=== PATIENT | male | born 1980 | race Caucasian/White ===

== ENCOUNTER → 2017-09-27 09:32 | Outpatient (CLI) | payer OTHER, SELFPAY ==
[2017-09-27 11:14] LABS: Add Manual Diff / Slide Review NO; Basophils Percent Auto 0.3 % (0-2); Eosinophils Percent Auto 3.1 % (2-4); Hematocrit 41.1 % (41-53); Hemoglobin 14.4 g/dL (13.5-17.5); Lymphocytes Percent Auto 32.7 % (25-40); Mean Corpuscular Hemoglobin 31.1 PG (26-34); Mean Corpuscular Volume 88.8 fL (80-100); Monocytes Percent Auto 6.1 % (3-14); Neutrophils Absolute Auto 2900 /uL (3000-5900); Neutrophils Percent Auto 57.8 % (50-75); Platelet Count 112 X10^3/uL (150-400); Red Blood Cell Count 4.63 X10^6/uL (4.5-5.9); Red Cell Distribution Width 12.3 % (11.6-14.8)
[2017-09-27 11:37] LABS: Alanine Aminotransferase 28 IU/L (21-72); Albumin Globulin Ratio 1.4 (1.0-2.8); Alkaline Phosphatase 78 U/L (38-126); Aspartate Aminotransferase 28 IU/L (17-59); BUN Creatinine Ratio 17.8 (6-22); Bilirubin Total 0.6 mg/dL (0.2-1.3); Blood Urea Nitrogen 16 mg/dL (9-20); Calcium 9.1 mg/dL (8.4-10.2); Carbon Dioxide 28 mmol/L (22-32); Chloride 102 mmol/L (98-107); Estimated Glomerular Filt Rate > 60.0 mL/min (>60); Globulin 2.8 g/dL (1.7-4.1); Glucose 77 mg/dL (70-100); HEMOLYSIS < 15 (0-50); Sodium 141 mmol/L (137-145); Total Protein 6.8 g/dL (6.3-8.2)
[2017-09-27 20:15] LABS: Hepatitis B Surface Antigen NEGATIVE s/c (NEGATIVE)
[2017-09-27 20:35] LABS: Hep C Virus Ab w/Reflex Quant NEGATIVE s/c (NEGATIVE)
[2017-09-29 15:21] LABS: Hepatitis B Surf Ab Qualitativ Nonreactive (Nonreactive)
[2017-10-03 16:01] LABS: Rapid Plasma Reagin NON REACTIVE
== END ==
PROVIDERS: Visit Provider Nurse Practitioner Family
DX: Z11.3 Encounter for screening for infections with a predominantly sexual mode of transmission (principal); Z11.59 Encounter for screening for other viral diseases; Z13.228 Encounter for screening for other metabolic disorders
CPT/HCPCS: 36415; 80053; 85025; 86592; 86706; 86803; 87340

== ENCOUNTER 2017-12-21 16:08 | Emergency (ER) | payer OTHER, MEDICAID, SELFPAY ==
[2017-12-21 16:08] VITALS: BP 145/86; PULSE 63; RESP 19; TEMP 36.6; O2SAT 97; BMI 27.8
--- NOTE | 2017-12-21 16:49 | ED.CHESTPAIN ---
HPI - Chest Pain <Camelia High PA-C - Last Filed: 12/21/17 22:03> General Chief Complaint: Chest Pain Stated Complaint: chest pain,sob,feels like he is going to faint Time Seen by Provider: 12/21/17 16:49 Source: patient Mode of arrival: ambulatory Limitations: no limitations History of Present Illness HPI narrative: This 37 year old male complains of acute onset of air hunger followed by dull mid sternal pain which gradually worsened to the point that he felt like he could not breathe. He states he became sweaty, clammy, and dizzy and felt like he would lose control of his bowels. He states that he did not actually pass out. He states that this lasted about 15 min, then started to resolve. He states he is feeling much better than when he left to come here. He still feels like his chest is somewhat tight, but does not feel clammy or dizzy. He states he had some nausea when this was worse but does not now. 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 He denies any asthma, recent cough or history of lung disease. Has not had any fever. He has not had any swelling or pain that is new in his extremities. He states that he did have a pulmonary embolism in the past the setting of liver laceration and hospitalization, otherwise no history of blood clots in he or 1st degree relatives. He states that for the last couple of weeks he has had episodes of brief palpitations that might last a minute, but are not particularly bothersome. He states this does not feel like panic attack or anxiety but possible. 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 He denies any drug use today. Related Data Home Medications Medication Instructions Recorded Confirmed buprenorphine-naloxone [Suboxone] #0 02/19/17 Previous Rx's Medication Instructions Recorded metoclopramide HCl 10 mg PO TIDAC #14 tab 02/19/17 Allergies Allergy/AdvReac Type Severity Reaction Status Date / Time Penicillins [PENICILLINS] Allergy Unknown Unverified 08/03/17 12:10 Exam <Camelia High PA-C - Last Filed: 12/21/17 22:03> Narrative Exam Narrative: GENERAL APPEARANCE: Patient sitting comfortably, in no distress. HEENT: PERRL, EOMI NECK/THYROID: Neck supple, no JVD. LUNGS: Clear to auscultation bilaterally. CHEST: No Tenderness to palpation HEART: Regular rate and rhythm without murmur, normal S1, S2, no S3 or S4. ABDOMEN: Soft, NT, ND, + BS x 4 quadrants EXTREMITIES: No cyanosis or edema. No calf tenderness NEUROLOGIC: Alert and oriented, normal speech, gait and coordination. DERMATOLOGIC: No exanthem Initial Vital Signs Initial Vital Signs: Vital Signs Temperature 97.8 F 12/21/17 16:08 Pulse Rate 63 12/21/17 16:08 Respiratory Rate 19 12/21/17 16:08 Blood Pressure 145/86 H 12/21/17 16:08 Pulse Oximetry 97 12/21/17 16:08 <Angeles Peters DO - Last Filed: 12/22/17 13:43> Initial Vital Signs Initial Vital Signs: Vital Signs Temperature 97.8 F 12/21/17 16:08 Pulse Rate 63 12/21/17 16:08 Respiratory Rate 19 12/21/17 16:08 Blood Pressure 145/86 H 12/21/17 16:08 Pulse Oximetry 97 12/21/17 16:08 Course <Camelia High PA-C - Last Filed: 12/21/17 22:03> Additional Information: Patient felt better during his stay in the ED. He felt this was more due to time that medications. Reviewed lab work, chest x-ray and EKG findings with him. No evidence of acute cardiopulmonary findings on workup or exam. He agreed to return if any acutely worsening symptoms again, otherwise advised follow-up with a primary care provider and he is agreeable Orders Ordered: Discontinued Medications Albuterol (Ventolin) 2.5 mg INH NOW ONE Stop: 12/21/17 17:05 Last Admin: 12/21/17 18:03 Dose: 2.5 mg Al Hydrox/Mg Hydrox/Simethicone 20 ml/ Lidocaine HCl 15 ml 0 ml PO NOW ONE Stop: 12/21/17 17:05 Last Admin: 12/21/17 17:50 Dose: 30 ml Sodium Chloride (Normal Saline 0.9%) 1,000 mls @ 150 mls/hr IV CONT CB Last Infusion: 12/21/17 18:49 Dose: 0 mls/hr Admin: 12/21/17 17:50 Dose: 150 mls/hr Vital Signs - 8 hr 12/21/17 16:08 12/21/17 17:00 12/21/17 17:39 Temperature 97.8 F Pulse Rate 63 53 L 50 L Respiratory Rate 19 Blood Pressure 145/86 H Blood Pressure [Left Arm] 135/75 H 122/71 H Pulse Oximetry 97 98 97 12/21/17 18:00 12/21/17 18:03 12/21/17 18:49 Temperature Pulse Rate 98 H 67 Respiratory Rate 12 12 Blood Pressure 124/58 H Blood Pressure [Left Arm] 112/54 L Pulse Oximetry 97 94 <Angeles Peters DO - Last Filed: 12/22/17 13:43> Orders Ordered: Discontinued Medications Albuterol (Ventolin) 2.5 mg INH NOW ONE Stop: 12/21/17 17:05 Last Admin: 12/21/17 18:03 Dose: 2.5 mg Al Hydrox/Mg Hydrox/Simethicone 20 ml/ Lidocaine HCl 15 ml 0 ml PO NOW ONE Stop: 12/21/17 17:05 Last Admin: 12/21/17 17:50 Dose: 30 ml Sodium Chloride (Normal Saline 0.9%) 1,000 mls @ 150 mls/hr IV CONT CB Last Infusion: 12/21/17 18:49 Dose: 0 mls/hr Admin: 12/21/17 17:50 Dose: 150 mls/hr Vital Signs - 8 hr 12/21/17 16:08 12/21/17 17:00 12/21/17 17:39 Temperature 97.8 F Pulse Rate 63 53 L 50 L Respiratory Rate 19 Blood Pressure 145/86 H Blood Pressure [Left Arm] 135/75 H 122/71 H Pulse Oximetry 97 98 97 12/21/17 18:00 12/21/17 18:03 12/21/17 18:49 Temperature Pulse Rate 98 H 67 Respiratory Rate 12 12 Blood Pressure 124/58 H Blood Pressure [Left Arm] 112/54 L Pulse Oximetry 97 94 MDM - Chest Pain <Camelia High PA-C - Last Filed: 12/21/17 22:03> Lab Data Attestation: I reviewed the patient's lab results. Result diagrams: 12/21/17 16:40 12/21/17 16:40 Lab Results 12/21/17 12/21/17 Range/Units 16:40 16:40 WBC 4.3 L (4.5-11.0) X10^3/uL RBC 4.65 (4.5-5.9) X10^6/uL Hgb 14.3 (13.5-17.5) g/dL Hct 41.0 (41-53) % MCV 88.3 (80-100) fL MCH 30.8 (26-34) PG MCHC 34.9 (30-36) % RDW 12.5 (11.6-14.8) % Plt Count 100 L (150-400) X10^3/uL Neut % (Auto) 55.9 (50-75) % Lymph % (Auto) 36.0 (25-40) % Wilcox % (Auto) 5.4 (3-14) % Eos % (Auto) 2.5 (2-4) % Baso % (Auto) 0.2 (0-2) % Neut # (Auto) 2400 L (6082-9673) /uL Sodium 144 (137-145) mmol/L Potassium 3.9 (3.4-5.1) mmol/L Chloride 107 (98-107) mmol/L Carbon Dioxide 28 (22-32) mmol/L BUN 21 H (9-20) mg/dL Creatinine 1.40 H (0.66-1.25) mg/dL Estimated GFR 57.3 L (>60) mL/min BUN/Creatinine Ratio 15.0 (6-22) Glucose 103 H (70-100) mg/dL Calcium 9.2 (8.4-10.2) mg/dL Total Bilirubin 0.7 (0.2-1.3) mg/dL AST 33 (17-59) IU/L ALT 29 (21-72) IU/L Alkaline Phosphatase 68 (38-126) U/L Total Creatine Kinase 299 H (55-170) U/L CK-MB (CK-2) 5.94 H (<2.37) ng/mL CK-MB (CK-2) Rel Index 2.0 (1.5-5.0) % Troponin I < 0.012 (0.01-0.034) ng/mL Total Protein 6.5 (6.3-8.2) g/dL Albumin 4.2 (3.5-5.0) g/dL Globulin 2.3 (1.7-4.1) g/dL Albumin/Globulin Ratio 1.8 (1.0-2.8) Lipase 92 (23-300) U/L Imaging Data Chest x-ray: Radiologist's impression: BACK Chest X-Ray (Signed) Shahab Ling - 12/21/17 View Report History Print [address] [address] XRay Report Signed Patient: Luis Carlos Sol MR#: [id number] : 1980 Acct:[id number] Age/Sex: 37 / M Date of Service: 12/21/17 Loc: ED Accession Number: [id number] Procedure: XR chest 1V Ordering Provider: Camelia High P.A-C PROCEDURE: XR CHEST 1V INDICATIONS: pain TECHNIQUE: One view of the chest was acquired. COMPARISON: [facility], CHEST 1 VIEW, 01/27/2014, 21:22. FINDINGS: Surgical changes and devices: None. Lungs and pleura: No pleural effusions or pneumothorax. Lungs are clear. Mediastinum: Mediastinal contours appear normal. Heart size is normal. Bones and chest wall: No suspicious bony lesions. Overlying soft tissues appear unremarkable. IMPRESSION: 1. No acute cardiopulmonary disease. Dictated by: Shahab Ling M.D. on 12/21/2017 at 17:35 Approved by: Shahab Ling M.D. on 12/21/2017 at 17:35 ECG Data Attestation: I personally reviewed and interpreted this ECG as follows: (Normal sinus rhythm with rate 70, normal axis) Prior ECG tracings: available for review <Angeles Peters DO - Last Filed: 12/22/17 13:43> Lab Data Attestation: I reviewed the patient's lab results. Lab Results 12/21/17 12/21/17 Range/Units 16:40 16:40 WBC 4.3 L (4.5-11.0) X10^3/uL RBC 4.65 (4.5-5.9) X10^6/uL Hgb 14.3 (13.5-17.5) g/dL Hct 41.0 (41-53) % MCV 88.3 (80-100) fL MCH 30.8 (26-34) PG MCHC 34.9 (30-36) % RDW 12.5 (11.6-14.8) % Plt Count 100 L (150-400) X10^3/uL Neut % (Auto) 55.9 (50-75) % Lymph % (Auto) 36.0 (25-40) % Wilcox % (Auto) 5.4 (3-14) % Eos % (Auto) 2.5 (2-4) % Baso % (Auto) 0.2 (0-2) % Neut # (Auto) 2400 L (6893-6826) /uL Sodium 144 (137-145) mmol/L Potassium 3.9 (3.4-5.1) mmol/L Chloride 107 (98-107) mmol/L Carbon Dioxide 28 (22-32) mmol/L BUN 21 H (9-20) mg/dL Creatinine 1.40 H (0.66-1.25) mg/dL Estimated GFR 57.3 L (>60) mL/min BUN/Creatinine Ratio 15.0 (6-22) Glucose 103 H (70-100) mg/dL Calcium 9.2 (8.4-10.2) mg/dL Total Bilirubin 0.7 (0.2-1.3) mg/dL AST 33 (17-59) IU/L ALT 29 (21-72) IU/L Alkaline Phosphatase 68 (38-126) U/L Total Creatine Kinase 299 H (55-170) U/L CK-MB (CK-2) 5.94 H (<2.37) ng/mL CK-MB (CK-2) Rel Index 2.0 (1.5-5.0) % Troponin I < 0.012 (0.01-0.034) ng/mL Total Protein 6.5 (6.3-8.2) g/dL Albumin 4.2 (3.5-5.0) g/dL Globulin 2.3 (1.7-4.1) g/dL Albumin/Globulin Ratio 1.8 (1.0-2.8) Lipase 92 (23-300) U/L ECG Data Attestation: I personally reviewed and interpreted this ECG as follows: Prior ECG tracings: available for review Interpretation: Normal sinus rhythm rate [address] changes [place] interval 1 4, QRS 24 QTC 404 similar to previous EKG Discharge Plan Departure Patient Disposition: Home Clinical Impression: Atypical chest pain Discharge Date/Time: 12/21/17 18:50 Interventions: ED Discharge Assessment Last Done: 12/21/17 18:49 Instructions: DI for Atypical Chest Pain Activity Restrictions/Additional Instructions: Please return as we talked about if you have acutely worsening symptoms again. Otherwise, since you are feeling better, it is okay to monitor at home, however you should call your insurance 1st thing tomorrow and get set up with a primary care provider so that you can follow up. The source of your pain was not clear today. You did not have any acute problems found on your lab work, EKG or chest x-ray. It is possible that you had a panic attack that was different than before. This could also potentially be due to airway irritation or spasm in your food pipe. I have not prescribed any medicines since you seem to get better with time rather than the medicines we gave you here. Prescriptions: No Action buprenorphine-naloxone [Suboxone] 4 MG/1 MG film Qty: 0 RF: 0 metoclopramide HCl 10 MG tablet 10 mg PO TIDAC Qty: 14 RF: 0 <Angeles Peters DO - Last Filed: 12/22/17 13:43> Cosign ED Attending Roberto Carlos Attestation: I was immediately available in the department for consultation. Documentation has been reviewed. I agree with assessment and plan.
[2017-12-21 17:00] VITALS: BP 135/75; PULSE 53; O2SAT 98
--- NOTE | 2017-12-21 17:03 | DI.RAD.S_ITS ---
PROCEDURE: XR CHEST 1V INDICATIONS: pain TECHNIQUE: One view of the chest was acquired. COMPARISON: [facility], , CHEST 1 VIEW, 01/27/2014, 21:22. FINDINGS: Surgical changes and devices: None. Lungs and pleura: No pleural effusions or pneumothorax. Lungs are clear. Mediastinum: Mediastinal contours appear normal. Heart size is normal. Bones and chest wall: No suspicious bony lesions. Overlying soft tissues appear unremarkable. IMPRESSION: 1. No acute cardiopulmonary disease. Dictated by: Shahab Ling M.D. on 12/21/2017 at 17:35 Approved by: Shahab Ling M.D. on 12/21/2017 at 17:35
--- NOTE | 2017-12-21 17:10 | ED_ITS ---
HPI - Chest Pain <Camelia High PA-C - Last Filed: 12/21/17 22:03> General Chief Complaint: Chest Pain Stated Complaint: chest pain,sob,feels like he is going to faint Time Seen by Provider: 12/21/17 16:49 Source: patient Mode of arrival: ambulatory Limitations: no limitations History of Present Illness HPI narrative: This 37 year old male complains of acute onset of air hunger followed by dull mid sternal pain which gradually worsened to the point that he felt like he could not breathe. He states he became sweaty, clammy, and dizzy and felt like he would lose control of his bowels. He states that he did not actually pass out. He states that this lasted about 15 min, then started to resolve. He states he is feeling much better than when he left to come here. He still feels like his chest is somewhat tight, but does not feel clammy or dizzy. He states he had some nausea when this was worse but does not now. 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 He denies any asthma, recent cough or history of lung disease. Has not had any fever. He has not had any swelling or pain that is new in his extremities. He states that he did have a pulmonary embolism in the past the setting of liver laceration and hospitalization, otherwise no history of blood clots in he or 1st degree relatives. He states that for the last couple of weeks he has had episodes of brief palpitations that might last a minute, but are not particularly bothersome. He states this does not feel like panic attack or anxiety but possible. 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 He denies any drug use today. Related Data Home Medications Medication Instructions Recorded Confirmed buprenorphine-naloxone [Suboxone] #0 02/19/17 Previous Rx's Medication Instructions Recorded metoclopramide HCl 10 mg PO TIDAC #14 tab 02/19/17 Allergies Allergy/AdvReac Type Severity Reaction Status Date / Time Penicillins [PENICILLINS] Allergy Unknown Unverified 08/03/17 12:10 Exam <Camelia High PA-C - Last Filed: 12/21/17 22:03> Narrative Exam Narrative: GENERAL APPEARANCE: Patient sitting comfortably, in no distress. HEENT: PERRL, EOMI NECK/THYROID: Neck supple, no JVD. LUNGS: Clear to auscultation bilaterally. CHEST: No Tenderness to palpation HEART: Regular rate and rhythm without murmur, normal S1, S2, no S3 or S4. ABDOMEN: Soft, NT, ND, + BS x 4 quadrants EXTREMITIES: No cyanosis or edema. No calf tenderness NEUROLOGIC: Alert and oriented, normal speech, gait and coordination. DERMATOLOGIC: No exanthem Initial Vital Signs Initial Vital Signs: Vital Signs Temperature 97.8 F 12/21/17 16:08 Pulse Rate 63 12/21/17 16:08 Respiratory Rate 19 12/21/17 16:08 Blood Pressure 145/86 H 12/21/17 16:08 Pulse Oximetry 97 12/21/17 16:08 <Angeles Peters DO - Last Filed: 12/22/17 13:43> Initial Vital Signs Initial Vital Signs: Vital Signs Temperature 97.8 F 12/21/17 16:08 Pulse Rate 63 12/21/17 16:08 Respiratory Rate 19 12/21/17 16:08 Blood Pressure 145/86 H 12/21/17 16:08 Pulse Oximetry 97 12/21/17 16:08 Course <Camelia High PA-C - Last Filed: 12/21/17 22:03> Additional Information: Patient felt better during his stay in the ED. He felt this was more due to time that medications. Reviewed lab work, chest x-ray and EKG findings with him. No evidence of acute cardiopulmonary findings on workup or exam. He agreed to return if any acutely worsening symptoms again, otherwise advised follow-up with a primary care provider and he is agreeable Orders Ordered: Discontinued Medications Albuterol (Ventolin) 2.5 mg INH NOW ONE Stop: 12/21/17 17:05 Last Admin: 12/21/17 18:03 Dose: 2.5 mg Al Hydrox/Mg Hydrox/Simethicone 20 ml/ Lidocaine HCl 15 ml 0 ml PO NOW ONE Stop: 12/21/17 17:05 Last Admin: 12/21/17 17:50 Dose: 30 ml Sodium Chloride (Normal Saline 0.9%) 1,000 mls @ 150 mls/hr IV CONT CB Last Infusion: 12/21/17 18:49 Dose: 0 mls/hr Admin: 12/21/17 17:50 Dose: 150 mls/hr Vital Signs - 8 hr 12/21/17 16:08 12/21/17 17:00 12/21/17 17:39 Temperature 97.8 F Pulse Rate 63 53 L 50 L Respiratory Rate 19 Blood Pressure 145/86 H Blood Pressure [Left Arm] 135/75 H 122/71 H Pulse Oximetry 97 98 97 12/21/17 18:00 12/21/17 18:03 12/21/17 18:49 Temperature Pulse Rate 98 H 67 Respiratory Rate 12 12 Blood Pressure 124/58 H Blood Pressure [Left Arm] 112/54 L Pulse Oximetry 97 94 <Angeles Peters DO - Last Filed: 12/22/17 13:43> Orders Ordered: Discontinued Medications Albuterol (Ventolin) 2.5 mg INH NOW ONE Stop: 12/21/17 17:05 Last Admin: 12/21/17 18:03 Dose: 2.5 mg Al Hydrox/Mg Hydrox/Simethicone 20 ml/ Lidocaine HCl 15 ml 0 ml PO NOW ONE Stop: 12/21/17 17:05 Last Admin: 12/21/17 17:50 Dose: 30 ml Sodium Chloride (Normal Saline 0.9%) 1,000 mls @ 150 mls/hr IV CONT CB Last Infusion: 12/21/17 18:49 Dose: 0 mls/hr Admin: 12/21/17 17:50 Dose: 150 mls/hr Vital Signs - 8 hr 12/21/17 16:08 12/21/17 17:00 12/21/17 17:39 Temperature 97.8 F Pulse Rate 63 53 L 50 L Respiratory Rate 19 Blood Pressure 145/86 H Blood Pressure [Left Arm] 135/75 H 122/71 H Pulse Oximetry 97 98 97 12/21/17 18:00 12/21/17 18:03 12/21/17 18:49 Temperature Pulse Rate 98 H 67 Respiratory Rate 12 12 Blood Pressure 124/58 H Blood Pressure [Left Arm] 112/54 L Pulse Oximetry 97 94 MDM - Chest Pain <Camelia High PA-C - Last Filed: 12/21/17 22:03> Lab Data Attestation: I reviewed the patient's lab results. Result diagrams: 12/21/17 16:40 12/21/17 16:40 Lab Results 12/21/17 12/21/17 Range/Units 16:40 16:40 WBC 4.3 L (4.5-11.0) X10^3/uL RBC 4.65 (4.5-5.9) X10^6/uL Hgb 14.3 (13.5-17.5) g/dL Hct 41.0 (41-53) % MCV 88.3 (80-100) fL MCH 30.8 (26-34) PG MCHC 34.9 (30-36) % RDW 12.5 (11.6-14.8) % Plt Count 100 L (150-400) X10^3/uL Neut % (Auto) 55.9 (50-75) % Lymph % (Auto) 36.0 (25-40) % Ramsey % (Auto) 5.4 (3-14) % Eos % (Auto) 2.5 (2-4) % Baso % (Auto) 0.2 (0-2) % Neut # (Auto) 2400 L (8042-2600) /uL Sodium 144 (137-145) mmol/L Potassium 3.9 (3.4-5.1) mmol/L Chloride 107 (98-107) mmol/L Carbon Dioxide 28 (22-32) mmol/L BUN 21 H (9-20) mg/dL Creatinine 1.40 H (0.66-1.25) mg/dL Estimated GFR 57.3 L (>60) mL/min BUN/Creatinine Ratio 15.0 (6-22) Glucose 103 H (70-100) mg/dL Calcium 9.2 (8.4-10.2) mg/dL Total Bilirubin 0.7 (0.2-1.3) mg/dL AST 33 (17-59) IU/L ALT 29 (21-72) IU/L Alkaline Phosphatase 68 (38-126) U/L Total Creatine Kinase 299 H (55-170) U/L CK-MB (CK-2) 5.94 H (<2.37) ng/mL CK-MB (CK-2) Rel Index 2.0 (1.5-5.0) % Troponin I < 0.012 (0.01-0.034) ng/mL Total Protein 6.5 (6.3-8.2) g/dL Albumin 4.2 (3.5-5.0) g/dL Globulin 2.3 (1.7-4.1) g/dL Albumin/Globulin Ratio 1.8 (1.0-2.8) Lipase 92 (23-300) U/L Imaging Data Chest x-ray: Radiologist's impression: BACK Chest X-Ray (Signed) Shahab Ling - 12/21/17 View Report History Print [address] [address] XRay Report Signed Patient: Luis Carlos Sol MR#: [id number] : 1980 Acct:[id number] Age/Sex: 37 / M Date of Service: 12/21/17 Loc: ED Accession Number: [id number] Procedure: XR chest 1V Ordering Provider: Camelia High P.A-C PROCEDURE: XR CHEST 1V INDICATIONS: pain TECHNIQUE: One view of the chest was acquired. COMPARISON: [facility], CHEST 1 VIEW, 01/27/2014, 21:22. FINDINGS: Surgical changes and devices: None. Lungs and pleura: No pleural effusions or pneumothorax. Lungs are clear. Mediastinum: Mediastinal contours appear normal. Heart size is normal. Bones and chest wall: No suspicious bony lesions. Overlying soft tissues appear unremarkable. IMPRESSION: 1. No acute cardiopulmonary disease. Dictated by: Shahab Ling M.D. on 12/21/2017 at 17:35 Approved by: Shahab Ling M.D. on 12/21/2017 at 17:35 ECG Data Attestation: I personally reviewed and interpreted this ECG as follows: (Normal sinus rhythm with rate 70, normal axis) Prior ECG tracings: available for review <Angeles Peters DO - Last Filed: 12/22/17 13:43> Lab Data Attestation: I reviewed the patient's lab results. Lab Results 12/21/17 12/21/17 Range/Units 16:40 16:40 WBC 4.3 L (4.5-11.0) X10^3/uL RBC 4.65 (4.5-5.9) X10^6/uL Hgb 14.3 (13.5-17.5) g/dL Hct 41.0 (41-53) % MCV 88.3 (80-100) fL MCH 30.8 (26-34) PG MCHC 34.9 (30-36) % RDW 12.5 (11.6-14.8) % Plt Count 100 L (150-400) X10^3/uL Neut % (Auto) 55.9 (50-75) % Lymph % (Auto) 36.0 (25-40) % Ramsey % (Auto) 5.4 (3-14) % Eos % (Auto) 2.5 (2-4) % Baso % (Auto) 0.2 (0-2) % Neut # (Auto) 2400 L (5050-5239) /uL Sodium 144 (137-145) mmol/L Potassium 3.9 (3.4-5.1) mmol/L Chloride 107 (98-107) mmol/L Carbon Dioxide 28 (22-32) mmol/L BUN 21 H (9-20) mg/dL Creatinine 1.40 H (0.66-1.25) mg/dL Estimated GFR 57.3 L (>60) mL/min BUN/Creatinine Ratio 15.0 (6-22) Glucose 103 H (70-100) mg/dL Calcium 9.2 (8.4-10.2) mg/dL Total Bilirubin 0.7 (0.2-1.3) mg/dL AST 33 (17-59) IU/L ALT 29 (21-72) IU/L Alkaline Phosphatase 68 (38-126) U/L Total Creatine Kinase 299 H (55-170) U/L CK-MB (CK-2) 5.94 H (<2.37) ng/mL CK-MB (CK-2) Rel Index 2.0 (1.5-5.0) % Troponin I < 0.012 (0.01-0.034) ng/mL Total Protein 6.5 (6.3-8.2) g/dL Albumin 4.2 (3.5-5.0) g/dL Globulin 2.3 (1.7-4.1) g/dL Albumin/Globulin Ratio 1.8 (1.0-2.8) Lipase 92 (23-300) U/L ECG Data Attestation: I personally reviewed and interpreted this ECG as follows: Prior ECG tracings: available for review Interpretation: Normal sinus rhythm rate [address] changes [place] interval 1 4 , QRS 24 QTC 404 similar to previous EKG Discharge Plan Departure Patient Disposition: Home Clinical Impression: Atypical chest pain Discharge Date/Time: 12/21/17 18:50 Interventions: ED Discharge Assessment Last Done: 12/21/17 18:49 Instructions: DI for Atypical Chest Pain Activity Restrictions/Additional Instructions: Please return as we talked about if you have acutely worsening symptoms again. Otherwise, since you are feeling better, it is okay to monitor at home, however you should call your insurance 1st thing tomorrow and get set up with a primary care provider so that you can follow up. The source of your pain was not clear today. You did not have any acute problems found on your lab work, EKG or chest x-ray. It is possible that you had a panic attack that was different than before. This could also potentially be due to airway irritation or spasm in your food pipe. I have not prescribed any medicines since you seem to get better with time rather than the medicines we gave you here. Prescriptions: No Action buprenorphine-naloxone [Suboxone] 4 MG/1 MG film Qty: 0 RF: 0 metoclopramide HCl 10 MG tablet 10 mg PO TIDAC Qty: 14 RF: 0 <Angeles Peters DO - Last Filed: 12/22/17 13:43> Cosign ED Attending Roberto Carlos Attestation: I was immediately available in the department for consultation. Documentation has been reviewed. I agree with assessment and plan.
[2017-12-21 17:13] LABS: Add Manual Diff / Slide Review NO; Basophils Percent Auto 0.2 % (0-2); Eosinophils Percent Auto 2.5 % (2-4); Hemoglobin 14.3 g/dL (13.5-17.5); Mean Corpuscular HGB Conc 34.9 % (30-36); Mean Corpuscular Hemoglobin 30.8 PG (26-34); Mean Corpuscular Volume 88.3 fL (80-100); Monocytes Percent Auto 5.4 % (3-14); Neutrophils Absolute Auto 2400 /uL (3000-5900); Neutrophils Percent Auto 55.9 % (50-75); Red Blood Cell Count 4.65 X10^6/uL (4.5-5.9); Red Cell Distribution Width 12.5 % (11.6-14.8); White Blood Cell Count 4.3 X10^3/uL (4.5-11.0)
[2017-12-21 17:14] LABS: Platelet Count 100 X10^3/uL (150-400)
[2017-12-21 17:26] LABS: Alanine Aminotransferase 29 IU/L (21-72); Albumin 4.2 g/dL (3.5-5.0); Albumin Globulin Ratio 1.8 (1.0-2.8); Alkaline Phosphatase 68 U/L (38-126); Aspartate Aminotransferase 33 IU/L (17-59); Bilirubin Total 0.7 mg/dL (0.2-1.3); Blood Urea Nitrogen 21 mg/dL (9-20); Calcium 9.2 mg/dL (8.4-10.2); Carbon Dioxide 28 mmol/L (22-32); Chloride 107 mmol/L (98-107); Creatine Kinase 299 U/L (55-170); Estimated Glomerular Filt Rate 57.3 mL/min (>60); Globulin 2.3 g/dL (1.7-4.1); Glucose 103 mg/dL (70-100); HEMOLYSIS < 15 (0-50); Lipase 92 U/L (23-300); Potassium 3.9 mmol/L (3.4-5.1); Sodium 144 mmol/L (137-145); Total Protein 6.5 g/dL (6.3-8.2)
[2017-12-21 17:39] VITALS: BP 122/71; PULSE 50; O2SAT 97
[2017-12-21 17:41] LABS: Creatine Kinase MB 5.94 ng/mL (<2.37); Troponin I < 0.012 ng/mL (0.01-0.034)
[2017-12-21] MEDS: MAG HYDROX/ALUMINUM/SIMETH SUS 20 ML, LIDOCAINE VISCOUS 2% 15 ML PO (17:50)
[2017-12-21] MEDS: SODIUM CHLORIDE 0.9% 1,000 ML 150 ML IV (17:50)
[2017-12-21 18:00] VITALS: BP 112/54
[2017-12-21 18:03] VITALS: PULSE 98; RESP 12; O2SAT 97
[2017-12-21] MEDS: ALBUTEROL 2.5 MG/3 ML NEB (ADULT) INH (18:03)
[2017-12-21 18:49] VITALS: BP 124/58; PULSE 67; RESP 12; O2SAT 94
== END 2017-12-21 18:50 | disposition home or self-care (01) ==
PROVIDERS: Emergency Provider Internal Medicine
DX: R07.89 Other chest pain (principal)
CPT/HCPCS: 36591; 71045; 80053; 81003; 82550; 82553; 83690; 84484; 85025; 93005; 93010; 94640; 96360; 99283; 99285; J7613

== ENCOUNTER 2020-05-24 18:54 | Emergency (ER) | payer OTHER, MEDICAID, SELFPAY ==
--- NOTE | 2020-05-24 18:57 | ED.UPPEXIN ---
HPI - Extremity Injury (Upper) General Chief Complaint: Wound/Laceration Stated Complaint: wound R hand pink finger from glass Time Seen by Provider: 05/24/20 18:56 Source: patient Mode of arrival: Ambulatory Limitations: no limitations History of Present Illness HPI narrative: 31-year-old male former smoker with otherwise noncontributory medical history presents with a chief complaint of an accidental laceration to his right 5th finger just prior to arrival. He was washing a glass in the sink and it broke, lacerating his finger. He has some pain and minimal bleeding but no numbness, tingling or weakness. His tetanus will need to be updated. He is otherwise well and free of complaint. Related Data Home Medications Medication Instructions Recorded Confirmed buprenorphine-naloxone [Suboxone] 4 film SUBLINGUAL DAILY #0 02/19/17 05/24/20 Previous Rx's Medication Instructions Recorded metoclopramide HCl 10 mg PO TIDAC #14 tab 02/19/17 Allergies Allergy/AdvReac Type Severity Reaction Status Date / Time Penicillins [PENICILLINS] Allergy Severe Anaphylaxis Verified 05/24/20 19:05 Review of Systems Constitutional Constitutional: Denies chills, Denies fatigue, Denies fever(s), Denies frequent falls, Denies lethargy and Denies weakness Eyes Eyes: Denies change in vision, Denies eye discharge, Denies irritation and Denies loss of vision ENT Ears, Nose, Mouth, and Throat: Denies change in voice, Denies dizziness, Denies neck pain, Denies sore throat and Denies throat swelling Cardiovascular Cardiovascular: Denies chest pain, Denies irregular heart rhythm, Denies lightheadedness, Denies palpitations, Denies dyspnea, Denies dyspnea on exertion and Denies orthopnea Respiratory Respiratory: Denies cough, Denies dyspnea, Denies dyspnea on exertion and Denies wheezing Gastrointestinal Gastrointestinal: Denies abdominal pain, Denies change in bowel habits, Denies diarrhea, Denies nausea and Denies vomiting Musculoskeletal Musculoskeletal: Denies neck pain and Denies numbness Integumentary/Breasts Skin/Breast: Denies pruritus, Denies erythema, Denies rash and Reports wounds Neurologic Neurologic: Denies behavioral changes, Denies confusion, Denies dizziness, Denies frequent falls, Denies loss of vision, Denies numbness and Denies weakness Psychiatric Psychiatric: Denies anxiety, Denies behavioral changes, Denies confusion, Denies depression, Denies homicidal ideation and Denies suicidal ideation Endocrine Endocrine: Denies fatigue, Denies flushing and Denies palpitations Hematologic/Lymphatic Hematologic/Lymphatic: Denies easy bruising Allergic/Immunologic Allergic/Immunologic: Denies urticaria, Denies throat swelling and Denies wheezing Patient History Medical History Degenerative disc disease History of heroin abuse JRA (juvenile rheumatoid arthritis) Migraine headache Panic attacks Spinal stenosis Surgical History History of hand surgery Social History Smoking Status: Current some day smoker Smoking Status: Current every day smoker alcohol intake frequency: 0-2 drinks per day Substance Use Type: does not use Exam Narrative Exam Narrative: GEN: AOx3 and in mild distress EYES: Pupils are equal, round, and reactive to light and accommodation. Extraoccular muscles are intact bilaterally. There is no subconjunctival hemorrhage or exudate. CHEST: Lungs are clear to auscultation bilaterally and free of wheezes, rales, or rhonchi. Heart rate is regular rhythm, there are no murmurs, clicks, rubs, or gallops. There is no chest wall tenderness. ABD: Abdomen is soft and nontender. There is no guarding or rebound. Bowel sounds are normal in all 4 quadrants. There is no mass or organomegaly. EXT: 2cm irregular laceration to lateral aspect of R fifth finger, overlying DIP. Viewed in bloodless field, no evidence of FB or tendon involvement. Full painless ROM of all extremities with no loss of sensation or strength. SKIN: Warm, pink, and dry. No erythema or rash Initial Vital Signs Initial Vital Signs: Vital Signs Temperature 98.7 F 05/24/20 19: Pulse Rate 78 05/24/20 19: Respiratory Rate 18 05/24/20 19: Blood Pressure 187/102 H 05/24/20 19: Pulse Oximetry 99 05/24/20 19:01 Procedures Laceration Repair Laceration 1: Site: hand Side (If applicable): right Size (cm): 2 Description: flap and irregular Depth: simple, single layer Local Anesthetic: lidocaine 1% and with bicarb Amount of anesthesia used (mL): 4 Pre-repair: wound explored and deep structures intact Skin layer closed with: nylon Size (cm): 5-0 Number of sutures: 5 Course Orders Ordered: Discontinued Medications Diphtheria/Tetanus/Acell Pertussis (Tet,Diph,Pertuss(Acell),Vac/Pf 0.5 Ml Syringe) 0.5 ml IM .ONCE ONE Stop: 05/24/20 19:09 Last Admin: 05/24/20 19:15 Dose: 0.5 ml Documented by: VINCENT Lidocaine/Sodium Bicarbonate (Lido 1%/Sod Bicarb 8.4% (10ml) 10 Ml Syringe) 10 ml INJ NOW ONE Stop: 05/24/20 19:10 Last Admin: 05/24/20 19:16 Dose: 10 ml Documented by: VINCENT Vital Signs Vital signs: Vital Signs - 8 hr 05/24/20 19:01 05/24/20 20:08 Temperature 98.7 F Pulse Rate 78 62 Respiratory Rate 18 16 Blood Pressure 187/102 H 168/74 H Pulse Oximetry 99 100 Discharge Plan Departure Patient Disposition: Home Clinical Impression: Laceration of finger, right Qualifiers: Encounter type: initial encounter Finger: little finger Damage to nail status: without damage Foreign body presence: without foreign body Qualified Code(s): S61.216A - Laceration without foreign body of right little finger without damage to nail, initial encounter Instructions: DI for Laceration Repair Activity Restrictions/Additional Instructions: *You have been diagnosed with [ right fifth finger laceration ] *What to do: *Take medications as directed: tylenol or motrin for pain * Please keep the wound clean and dry to the best of your ability. Please monitor for signs of infection such as redness to the skin or increasing pain. Have the sutures removed by your doctor in about 7 days. If you are unable to get into your doctor, we would be happy to remove the sutures in that same timeframe. *Return to ER if you should have any new, worsening or concerning symptoms Prescriptions: No Action buprenorphine-naloxone [Suboxone] 4 MG/1 MG film 4 film sublingual DAILY Qty: 0 RF: 0 metoclopramide HCl 10 MG tablet 10 mg PO TIDAC Qty: 14 RF: 0
[2020-05-24 19:01] VITALS: BP 187/102; PULSE 78; RESP 18; TEMP 37.1; O2SAT 99
--- NOTE | 2020-05-24 19:05 | PC.NURSE ---
Patient soaking finger in warm water and chlorahexadine soap. Tolerating well
[2020-05-24] MEDS: TET,DIPH,PERTUSS(ACELL),VAC/PF 0.5 ML SYRINGE IM (19:15)
[2020-05-24] MEDS: LIDO 1%/SOD BICARB 8.4% (10ML) 10 ML SYRINGE INJ (19:16)
[2020-05-24 20:08] VITALS: BP 168/74; PULSE 62; RESP 16; O2SAT 100
== END 2020-05-24 20:09 | disposition home or self-care (01) ==
PROVIDERS: Emergency Provider Emergency Medicine
DX: S61.216A Laceration without foreign body of right little finger without damage to nail, initial encounter (principal); W25.XXXA Contact with sharp glass, initial encounter; Z23 Encounter for immunization
CPT/HCPCS: 12001; 29130; 90471; 99281; 99283; 90715

== ENCOUNTER 2020-09-16 21:06 | Emergency (ER) | payer OTHER, MEDICAID, SELFPAY ==
[2020-09-16 21:21] VITALS: BP 163/88; PULSE 83; RESP 22; TEMP 36.8; O2SAT 100; BMI 33.2
--- NOTE | 2020-09-16 21:27 | DI.RAD.S_ITS ---
PROCEDURE: XR KNEE LT 3V INDICATIONS: injury, knee pain TECHNIQUE: 3 views of the knee were acquired. COMPARISON: [facility], , KNEE 3V RIGHT, 01/28/2009, 6:56. FINDINGS: Bones: No fractures or dislocations. No suspicious bony lesions. Soft tissues: Large joint effusion. IMPRESSION: Large joint effusion. No fracture. If the patient's pain or other symptoms persist, consider further evaluation with MRI Dictated by: Donny Holm M.D. on 09/16/2020 at 21:56 Approved by: Donny Holm M.D. on 09/16/2020 at 21:57
--- NOTE | 2020-09-16 21:32 | ED_ITS ---
HPI - Extremity Injury (Lower) General Chief Complaint: Extremity Injury, Lower Stated Complaint: left knee pain Time Seen by Provider: 09/16/20 21:19 Source: patient Mode of arrival: Wheelchair Limitations: no limitations History of Present Illness HPI Narrative: Patient complains of left knee pain. 2:00 p.m.. this afternoon. Cutting the lawn at a odd angle. [place] a pop. Pain has not resolved. Ongoing pain. No prior history of surgery or injury to that knee. No numbness tingling weakness to the foot. Painful with attempt to bear weight. Mother's drove patient here. Patient is on Suboxone. Does not want narcotic medication No skin injury. No numbness tingling weakness to the foot. Patient in shorts. Shoes and socks off complaint: knee injury Related Data Home Medications Medication Instructions Recorded Confirmed buprenorphine-naloxone [Suboxone] 4 film SUBLINGUAL DAILY #0 02/19/17 05/24/20 Previous Rx's Medication Instructions Recorded metoclopramide HCl 10 mg PO TIDAC #14 tab 02/19/17 hydroxyzine HCl 50 mg PO BEDTIME #10 tab 09/16/20 ibuprofen 800 mg PO Q8H PRN #20 tab 09/16/20 Allergies Allergy/AdvReac Type Severity Reaction Status Date / Time Penicillins [PENICILLINS] Allergy Severe Anaphylaxis Verified 05/24/20 19:05 Review of Systems Review of Systems Narrative: GENERAL: Denies chills, fatigue, malaise, fever, sweats. HEENT: Denies sinus pain, ear pain, sore throat RESPIRATORY: Denies dyspnea, cough CARDIOVASCULAR: Denies chest pain, palpitations GASTROINTESTINAL: Denies nausea, vomiting, abdominal pain : Denies dysuria, frequency, hematuria MUSCULOSKELETAL: denies muscle complains bony pain SKIN: Denies rash, skin lesions NEUROLOGIC: Denies weakness, numbness ROS Unobtainable: All systems reviewed & are unremarkable except as noted in HPI and below Patient History Medical History Degenerative disc disease History of heroin abuse JRA (juvenile rheumatoid arthritis) Migraine headache Panic attacks Spinal stenosis Surgical History History of hand surgery Social History Smoking Status: Current some day smoker Smoking Status: Current some day smoker tobacco type: vaping alcohol intake frequency: holidays/special occasions only Substance Use Type: does not use Exam Narrative Exam Narrative: GENERAL: in no distress, not toxic not dyspneic HEAD: Normocephalic. EYES: Pupils equal round No scleral icterus. No injection no discharge ENT: Mucous membranes moist. NECK: Trachea midline. CARDIOVASCULAR: Regular rate and rhythm without murmurs RESPIRATORY: Clear to auscultation. Breath sounds equal bilaterally. No wheezes, rales, or rhonchi. GASTROINTESTINAL: Abdomen soft, non-tender EXTREMITIES: No gross deformities. Examination left lower extremity foot. Foot warm soft and pink. Ankle nontender. There is diffuse tenderness of the left knee. Grossly symmetric to the right knee. Skin intact. Limited range of motion of the knee due to pain. Any direction of the knee anterior posterior medial lateral or rotation stress of the left leg causes pain to the left knee. BACK: No flank tenderness. NEURO: AOx4. SKIN: Warm and dry PSYCH: Not anxious, is cooperative Initial Vital Signs Initial Vital Signs: Vital Signs Temperature 98.3 F 09/16/20 21:21 Pulse Rate 83 09/16/20 21:21 Respiratory Rate 22 09/16/20 21:21 Blood Pressure 163/88 H 09/16/20 21:21 Pulse Oximetry 100 09/16/20 21:21 Procedures Orthopedic Splinting/Casting Injury #1: Side: left Lower Extremity Injury Location: knee Lower Extremity Immobilizer: knee immobilizer Other Orthopedic Equipment: crutches Post splinting neuro exam: intact Post splinting vascular exam: intact Placed by: Nursing Course Course Course Narrative: No new issues during course of stay Orders Ordered: ED Orders 09/16/20 21:27 XR knee LT 3V Stat Discontinued Medications Hydroxyzine Pamoate (Hydroxyzine Pamoate 25 Mg Capsule) 50 mg PO NOW ONE Stop: 09/16/20 22:09 Last Admin: 09/16/20 22:16 Dose: 50 mg Documented by: IDALMIS Ketorolac Tromethamine (Ketorolac 30 Mg/Ml Vial) 30 mg IM NOW ONE Stop: 09/16/20 21:52 Last Admin: 09/16/20 22:15 Dose: 30 mg Documented by: IDALMIS Reevaluation(s) Reevaluation #1: Reviewed results with patient. Will need outpatient MRI of the knee. Orthopedic referral given. Vital Signs Vital signs: Vital Signs - 8 hr 09/16/20 21:21 09/16/20 22:41 Temperature 98.3 F Pulse Rate 83 72 Respiratory Rate 22 Blood Pressure 163/88 H 136/69 Pulse Oximetry 100 97 MDM - Extremity Injury (Lower) Differential Diagnosis Differential diagnosis: Likely acute internal derangement of knee and other (Left knee sprain/strain) Imaging Data Extremity x-ray #1: Radiologist's Impression: [address] [id number] ReportSigned Patient: Luis Carlos Sol LMR#: [id number]: [id number]:[id number]/Sex: 40 / MDate of Service: 09/16/20Loc: EDAccession Number: [id number] Procedure: XR knee LT 3V Ordering Provider: Enrique Miller MD PROCEDURE: XR KNEE LT 3V INDICATIONS: injury, knee pain TECHNIQUE: 3 views of the knee were acquired. COMPARISON: [facility], KNEE 3V RIGHT, 01/28/2009, 6:56. FINDINGS: Bones: No fractures or dislocations. No suspicious bony lesions. Soft tissues: Large joint effusion. IMPRESSION: Large joint effusion. No fracture. If the patient's pain or other symptoms persist, consider further evaluation with MRI Dictated by: Donny Holm M.D. on 09/16/2020 at 21:56 Approved by: Donny Holm M.D. on 09/16/2020 at 21:57 [facility] Narrative Medical decision making narrative: Appropriate for discharge home. 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 Neurovascularly intact. Referral for Orthopedics given. Patient is on Suboxone, no narcotic prescription, patient does not want narcotics., however patient would like something to help him sleep Discharge Plan Departure Patient Disposition: Home Clinical Impression: Strain of left knee Qualifiers: Encounter type: initial encounter Qualified Code(s): S86.912A - Strain of unspecified muscle(s) and tendon(s) at lower leg level, left leg, initial encounter Instructions: DI for Knee Sprain, DI for Knee Effusion Activity Restrictions/Additional Instructions: Use knee immobilizer and crutches for walking and for comfort. Call provided orthopedic office tomorrow for office recheck in a week. May need outpatient scheduling for MRI of the left knee. May continue with ibuprofen or Tylenol for pain. Return if worse if any questions or concerns Prescriptions: New hydroxyzine HCl 50 mg tablet 50 mg PO BEDTIME Qty: 10 RF: 0 ibuprofen 800 mg tablet 800 mg PO Q8H PRN (Reason: pain) Qty: 20 RF: 0 No Action buprenorphine-naloxone [Suboxone] 4 MG/1 MG film 4 film sublingual DAILY Qty: 0 RF: 0 metoclopramide HCl 10 MG tablet 10 mg PO TIDAC Qty: 14 RF: 0 Referrals: Woodrow King MD [Physician] -
[2020-09-16] MEDS: KETOROLAC 30 MG/ML VIAL IM (22:15)
[2020-09-16] MEDS: hydrOXYzine pamoate 25 MG CAPSULE 50 MG PO (22:16)
[2020-09-16 22:41] VITALS: BP 136/69; PULSE 72; O2SAT 97
== END 2020-09-16 22:43 | disposition home or self-care (01) ==
PROVIDERS: Emergency Provider Emergency Medicine
DX: S86.912A Strain of unspecified muscle(s) and tendon(s) at lower leg level, left leg, initial encounter (principal); X50.1XXA Overexertion from prolonged static or awkward postures, initial encounter
CPT/HCPCS: 73562; 96372; 99283; 99284; J1885

== ENCOUNTER → 2020-10-13 13:14 | Outpatient (CLI) | payer OTHER, MEDICAID, SELFPAY ==
--- NOTE | 2020-10-13 | DI.MRI.S_ITS ---
PROCEDURE: MR KNEE LT WO CON INDICATIONS: Unspecified internal derangement of left knee TECHNIQUE: Noncontrast sagittal PD fast spin echo and T2 fast spin echo with fat saturation, sagittal 3-D FLASH with fat saturation; coronal T1 spin echo and PD fast spin echo with fat saturation, and axial PD fast spin echo with fat saturation through the knee. COMPARISON: [facility], CR, XR KNEE LT 3V, 09/16/2020, 21:27. FINDINGS: Image quality: Excellent. Menisci: Vague linear oblique high T2 signal intensity within the posterior horn medial meniscus is present, demonstrating possible inferior articular surface extension. There is high T2 signal at the posterior meniscal capsular junction of the posterior horn medial meniscus. Lateral meniscus is intact. Cruciate ligaments: The anterior and posterior cruciate ligaments appear intact. Medial structures: The medial collateral ligament appears intact. Mild T2 signal elevation surrounds the medial collateral ligament. Visualized portions of the pes anserinus tendons appear normal. No abnormal bursal fluid. Lateral structures: The lateral collateral ligament demonstrates mild T2 signal elevation at the femoral origin. long and short heads of the biceps femoris tendon appear intact. The popliteus tendon appears normal. Iliotibial band appears normal. Anterior structures: The quadriceps and patellar tendons appear intact. Mild T2 signal elevation within the distal quadriceps and proximal patellar tendons at the patellar insertion sites. Patellar alignment is normal. No femoral trochlear dysplasia or ventral trochlear prominence. No edema in the infrapatellar fat pad. Bones and cartilage: No bone marrow contusions or fractures. There is a fat containing focus within the proximal tibia measuring roughly 40 mm craniocaudal by 24 mm anteroposterior by 24 mm transverse. Mild articular cartilage loss diffusely overlies the weight-bearing aspects of the medial femoral condyle and medial tibial plateau. Articular cartilage fibrillation overlies the medial and lateral patellar facets. Joint space: There is a small knee joint effusion and a trace Perera's cyst. Normal appearing synovial plicae are incidentally noted. IMPRESSION: 1. Tricompartmental osteoarthritis with associated articular cartilage loss. 2. Meniscal capsular junction injury involving the medial meniscus with possible related oblique tear. 3. Small knee joint effusion and trace Perera's cyst. 4. Mild quadriceps and patellar tendinopathy. 5. Mild MCL strain. 6. Low-grade partial thickness lateral collateral ligament tear. Dictated by: Ras Renee M.D. on 10/13/2020 at 15:05 Approved by: Ras Renee M.D. on 10/13/2020 at 15:09
== END ==
PROVIDERS: Referring Provider Physician Assistant Medical; Visit Provider Physician Assistant Medical
DX: M23.92 Unspecified internal derangement of left knee (principal); S83.422A Sprain of lateral collateral ligament of left knee, initial encounter; S83.412A Sprain of medial collateral ligament of left knee, initial encounter; M17.12 Unilateral primary osteoarthritis, left knee; M25.462 Effusion, left knee
CPT/HCPCS: 73721

== ENCOUNTER 2021-06-22 20:46 | Emergency (ER) | payer OTHER, MEDICAID, SELFPAY ==
[2021-06-22 20:55] VITALS: BP 145/77; PULSE 90; RESP 18; TEMP 37.8; O2SAT 98; BMI 33.7
[2021-06-22 21:34] LABS: COVID19 -Nasal RAPID POSITIVE (Negative)
[2021-06-22] MEDS: ONDANSETRON 4 MG ODT PREPACK 1 BOTTLE MISC (22:02)
[2021-06-22] MEDS: CYCLOBENZAPRINE 10 MG PREPACK 1 BOTTLE MISC (22:02)
--- NOTE | 2021-06-22 22:11 | ED.PEDFEVER ---
HPI - Pediatric Fever General Chief Complaint: Fever Stated Complaint: fever, vomiting, weakness, lightheaded Time Seen by Provider: 06/22/21 20:56 Mode of arrival: Ambulatory History of Present Illness HPI narrative: 41-year-old male smoker with history of opioid abuse presents with his daughter. The 2 of them of had similar symptoms over the past 24 hours which includes mild headache, nasal congestion, sore throat, dry hacking cough, nausea, vomiting. He reports no significant shortness of breath nor chest pain. He is not vaccinated against COVID. He denies any significant shortness of breath. He denies any change in diet or medications. Related Data Home Medications Medication Instructions Recorded Confirmed buprenorphine 4 mg-naloxone 1 mg 4 film SUBLINGUAL DAILY #0 02/19/17 05/24/20 sublingual film (Suboxone) Previous Rx's Medication Instructions Recorded metoclopramide HCl 10 mg tablet 10 mg PO TIDAC #14 tab 02/19/17 hydroxyzine HCl 50 mg tablet 50 mg PO BEDTIME #10 tab 09/16/20 ibuprofen 800 mg tablet 800 mg PO Q8H PRN #20 tab 09/16/20 cyclobenzaprine 10 mg tablet 10 mg PO TID PRN #14 tab 06/22/21 ondansetron 4 mg disintegrating 4 mg PO TID-QID PRN #10 tab 06/22/21 tablet Allergies Allergy/AdvReac Type Severity Reaction Status Date / Time Penicillins [PENICILLINS] Allergy Severe Anaphylaxis Verified 05/24/20 19:05 Pediatric Review of Systems Review of Systems: GENERAL: See HPI HEENT: See HPI RESPIRATORY: See HPI CARDIOVASCULAR: Denies chest pain, palpitations, orthopnea, edema, GASTROINTESTINAL: See HPI : Denies dysuria, frequency, incontinence, hematuria, urinary retention. MUSCULOSKELETAL: denies weakness, joint pain, or bony pain SKIN: Denies rash, skin lesions, or other NEUROLOGIC: Denies weakness, headache, numbness, change in speech, confusion, seizures, incoordination. PSYCHIATRIC: No concerning psychosocial issues. 12 point review of systems is negative except for those stated above Patient History Medical History Degenerative disc disease History of heroin abuse JRA (juvenile rheumatoid arthritis) Migraine headache Panic attacks Spinal stenosis Surgical History History of hand surgery Social History Smoking Status: Current some day smoker Smoking Status: Current some day smoker tobacco type: cigarettes and vaping alcohol intake frequency: a few times a week Substance Use Type: does not use Pediatric Exam Narrative Physical exam: GENERAL: [41] year old patient appears stated age. Well-developed patient, in mild distress. HEAD: Atraumatic. Normocephalic. EYES: Pupils equal round and reactive. Extraocular motions intact. No scleral icterus. No injection or drainage. ENT: Moist mucous membranes Nose without bleeding, purulent drainage. Throat without erythema, tonsillar hypertrophy or exudate. Airway patent. NECK: Trachea midline. Non tender CARDIOVASCULAR: Regular rate and rhythm without murmurs, gallops, or rubs. RESPIRATORY: Clear to auscultation. Breath sounds equal bilaterally. No wheezes, rales, or rhonchi. No increased work of breathing, use of accessory muscles or need for supplemental oxygen GASTROINTESTINAL: Abdomen soft, non-tender, nondistended. EXTREMITIES: No edema or joint tenderness. BACK: Nontender without deformity or crepitance. No flank tenderness. NEURO: AOx3. SKIN: No rash or erythema of visible areas Initial Vital Signs Initial Vital Signs: Vital Signs Temperature 100.1 F H 06/22/21 20:55 Pulse Rate 90 06/22/21 20:55 Respiratory Rate 18 06/22/21 20:55 Blood Pressure 145/77 H 06/22/21 20:55 Pulse Oximetry 98 06/22/21 20:55 General Limitations: no limitations Course Orders Ordered: ED Orders 06/22/21 20:58 COVID19 -Nasal swab/Pre-Proc Stat Discontinued Medications Cyclobenzaprine HCl (Cyclobenzaprine 10 Mg Prepack) 1 bottle MISC SEEINSTR ONE Stop: 06/22/21 21:54 Last Admin: 06/22/21 22:02 Dose: 1 bottle Documented by: SHABNAM Ondansetron HCl (Ondansetron 4 Mg Odt Prepack) 1 bottle MISC SEEINSTR ONE Stop: 06/22/21 21:54 Last Admin: 06/22/21 22:02 Dose: 1 bottle Documented by: SHABNAM Vital Signs Vital signs: Vital Signs - 8 hr 06/22/21 20:55 Temperature 100.1 F H Pulse Rate 90 Respiratory Rate 18 Blood Pressure 145/77 H Pulse Oximetry 98 Medical Decision Making Lab Data Labs: Lab Results 06/22/21 Range/Units 20:58 SARS-CoV-2 (PCR) Positive H (Negative) MDM Narrative Medical decision making narrative: Patient has reassuring history and physical exam. No evidence of dehydration, he is tolerating orals. There is no evidence of respiratory distress, no use of accessory muscles or need for supplemental oxygen. He is early in the course of COVID, young and otherwise healthy. There is no indication for extensive workup, hospitalization or other. Extensive return precautions discussed and questions answered to his apparent satisfaction Discharge Plan Departure Patient Disposition: Home Clinical Impression: COVID-19 Instructions: DI for COVID-19 (Suspected or Confirmed ) Activity Restrictions/Additional Instructions: *You have been diagnosed with [ COVID-19] *What to do: * per recommendations from the CDC and the [facility] Department of Health * stay home except to get medical care. Restrict activities outside your home, except for getting medical care. Do not go to work, school, or public areas. Avoid using public transportation, ride sharing, or taxis. * separate yourself from other people in your home. * call ahead before visiting your doctor * Wear a facemask * Cover your coughs and sneezes * Clean your hands often * Avoid sharing household items * Clean all high-touch services every day * Monitor your symptoms and seek prompt medical attention if your illness is worsening, particularly with difficulty in breathing. You may discontinue your isolation when: 1. You have been fever-free for at least 24 hours without the use of fever reducing medication, AND 2. Your symptoms are getting better, AND 3. At least 5 days have passed since symptoms first appeared 4. If you have fever, continue to stay home until fever resolves Individuals with laboratory confirmed COVID-19 who have not had any symptoms may discontinue home isolation when at least 5 days have passed since the date of their first COVID-19 diagnostic test and have had no subsequent illness You should notifiy any friends and family that have been in close contact *If up to date on COVID Vaccines, then they do not need to quarantine unless symptoms develop. Get tested on day 5 (or sooner if symptoms develop). Take precautions and watch for symptoms until day 10 *If NOT up to date on COVID Vaccines, then CDC recommends quarantine for at least 5 full days. Wear a well fitted mask at home if you must be around others. If they develop symptoms they should get tested. If they remain asymptomatic they should get tested on day 5. They should take precautions and monitor for symptoms until day 10. Prescriptions: New cyclobenzaprine 10 mg tablet 10 mg PO TID PRN (Reason: muscle spasm) Qty: 14 0RF ondansetron 4 mg tablet,disintegrating 4 mg PO TID-QID PRN (Reason: nausea and vomiting) Qty: 10 0RF No Action buprenorphine-naloxone [Suboxone] 4 MG/1 MG film 4 film sublingual DAILY Qty: 0 0RF Rx Instructions: 16mg metoclopramide HCl 10 MG tablet 10 mg PO TIDAC Qty: 14 0RF hydroxyzine HCl 50 mg tablet 50 mg PO BEDTIME Qty: 10 0RF ibuprofen 800 mg tablet 800 mg PO Q8H PRN (Reason: pain) Qty: 20 0RF
== END 2021-06-22 22:08 | disposition home or self-care (01) ==
PROVIDERS: Emergency Provider Emergency Medicine
DX: U07.1 COVID-19 (principal)
CPT/HCPCS: 87635; 99281; 99282; C9803

== ENCOUNTER 2021-10-13 19:37 | Emergency (ER) | payer OTHER, MEDICAID, SELFPAY ==
[2021-10-13 19:39] VITALS: BP 192/87; PULSE 67; RESP 20; TEMP 36.9; O2SAT 99
== END 2021-10-13 20:24 | disposition left against medical advice (07) ==
PROVIDERS: Emergency Provider Emergency Medicine
CPT/HCPCS: 99281

== ENCOUNTER 2022-03-01 01:34 | Emergency (ER) | payer OTHER, MEDICAID, SELFPAY ==
[2022-03-01 01:42] VITALS: BP 162/103; PULSE 82; RESP 18; TEMP 36.3; O2SAT 97; BMI 34.0
--- NOTE | 2022-03-01 01:45 | PC.NURSE ---
Patient reports he woke up from sleep and felt that his uvula was swollen and making him feel like he's gagging on it. Denies pain or recent illness.
[2022-03-01] MEDS: DEXAMETHASONE 10 MG/ML VIAL IM (02:00)
--- NOTE | 2022-03-01 02:06 | ED_ITS ---
HPI - Dental/Oral General Chief complaint: Dental/Oral Stated complaint: swollen uvula Time Seen by Provider: 03/01/22 01:37 Source: patient Mode of arrival: Ambulatory History of Present Illness HPI Narrative: 41-year-old male smoker presents with a chief complaint of a swollen uvula upon waking. He denies any pain or difficulty swallowing. He is had no runny nose and denies sore throat. He is had no fever chills nor nausea, vomiting or diarrhea. He denies any cough or trouble breathing. He is had no new medications or dietary change. He denies any rash, facial, tongue or lip swelling. He denies any history of the same. He states that he feels like he is gagging on it and wants to be sure there is nothing serious Related Data Home Medications Medication Instructions Recorded Confirmed buprenorphine 4 mg-naloxone 1 mg 4 film sublingual DAILY ##0 02/19/17 05/24/20 sublingual film (Suboxone) Previous Rx's Medication Instructions Recorded metoclopramide HCl 10 mg tablet 10 mg PO TIDAC #14 tabs 02/19/17 hydroxyzine HCl 50 mg tablet 50 mg PO BEDTIME #10 tabs 09/16/20 ibuprofen 800 mg tablet 800 mg PO Q8H PRN pain #20 tabs 09/16/20 cyclobenzaprine 10 mg tablet 10 mg PO TID PRN muscle spasm #14 06/22/21 tabs ondansetron 4 mg disintegrating 4 mg PO TID-QID PRN nausea and 06/22/21 tablet vomiting #10 tabs methylprednisolone 4 mg tablets in See Rx Instructions PO .COMPLEX 03/01/22 a dose pack (Medrol (Baljeet)) #21 ea Allergies Allergy/AdvReac Type Severity Reaction Status Date / Time Penicillins [PENICILLINS] Allergy Severe Anaphylaxis Verified 03/01/22 01:42 Review of Systems Review of Systems Narrative: GENERAL: Denies chills, fatigue, malaise, fever, sweats. HEENT: See HPI RESPIRATORY: Denies dyspnea, cough, wheezing, hemoptysis, sputum. CARDIOVASCULAR: Denies chest pain, palpitations, orthopnea, edema, GASTROINTESTINAL: Denies nausea, vomiting, abdominal pain, diarrhea, constipation, melena. : Denies dysuria, frequency, incontinence, hematuria, urinary retention. MUSCULOSKELETAL: denies weakness, joint pain, or bony pain SKIN: Denies rash, skin lesions, or other NEUROLOGIC: Denies weakness, headache, numbness, change in speech, confusion, seizures, incoordination. PSYCHIATRIC: No concerning psychosocial issues. 12 point review of systems is negative except for those stated above Patient History Medical History Degenerative disc disease History of heroin abuse JRA (juvenile rheumatoid arthritis) Migraine headache Panic attacks Spinal stenosis Surgical History History of hand surgery Social History Smoking Status: Current some day smoker Smoking Status: Current some day smoker tobacco type: vaping alcohol intake frequency: a few times a week Substance Use Type: does not use Exam Narrative Exam Narrative: GENERAL: [41] year old patient appears stated age. Well-developed patient, in mild distress. HEAD: Atraumatic. Normocephalic. EYES: Pupils equal round and reactive. Extraocular motions intact. No scleral icterus. No injection or drainage. ENT: Nose without bleeding, purulent drainage. Uvula swelling without exudate. Moderate clear post pharyngeal drainage. No tonsillar hypertrophy or exudate. Airway patent. Managing secretions without difficulty NECK: Trachea midline. Non tender, no lymphadenopathy CARDIOVASCULAR: Regular rate and rhythm without murmurs, gallops, or rubs. RESPIRATORY: Clear to auscultation. Breath sounds equal bilaterally. No wheezes, rales, or rhonchi. GASTROINTESTINAL: Abdomen soft, non-tender, nondistended. EXTREMITIES: No edema or joint tenderness. BACK: Nontender without deformity or crepitance. No flank tenderness. NEURO: AOx3. SKIN: No rash or erythema of visible areas Initial Vital Signs Initial Vital Signs: Vital Signs Temperature 97.3 F L 03/01/22 01:42 Pulse Rate 82 03/01/22 01:42 Respiratory Rate 18 03/01/22 01:42 Blood Pressure 162/103 H 03/01/22 01:42 Pulse Oximetry 97 03/01/22 01:42 Oxygen Delivery Method 03/01/22 01:42 Course Orders Ordered: Discontinued Medications Dexamethasone (Dexamethasone 10 Mg/Ml Vial) 10 mg IM NOW ONE Stop: 03/01/22 01:56 Last Admin: 03/01/22 02:00 Dose: 10 mg Documented By: ARMANI Loratadine (Loratadine 10 Mg Tablet) 10 mg PO NOW ONE Stop: 03/01/22 02:21 Last Admin: 03/01/22 02:31 Dose: 10 mg Documented By: ARMANI Vital Signs Vital signs: Vital Signs - 8 hr 03/01/22 01:42 03/01/22 02:33 Temperature 97.3 F L Pulse Rate 82 Respiratory Rate 18 Blood Pressure 162/103 H 134/86 Pulse Oximetry 97 Oxygen Delivery Method Room Air MDM - Dental/Oral Lab Data Labs: Point of Care Testing Rapid Strep A Negative MDM Narrative Medical decision making narrative: Patient with reassuring history and physical exam. Uvula is somewhat swollen but airway is patent. Patient without respiratory distress, difficulty managing secretions or trouble swallowing. He is nontoxic without signs of sepsis. He is had no infectious symptoms whatsoever but does demonstrate a fair amount of pharyngeal drainage. Patient given steroids here and encouraged to take antihistamines to dry secretions. No indication for antibiotics, blood work or imaging. Return precautions discussed, questions answered to his apparent satisfaction. Discharge Plan Departure Patient Disposition: Home Clinical Impression: Swollen uvula Instructions: DI for Uvulitis Activity Restrictions/Additional Instructions: *You have been diagnosed with [uvulitis, which is a swelling of your uvula. There is no sign of an infectious process or abscess and treatment includes steroids, anti-inflammatories and antihistamines.] *What to do: *Please continue to take your regular medications as directed. [x ] New medication prescriptions sent to your pharmacy: [[facility] ] *Other options to help include over the counter antihistamines such as claritin, zyrtec, pema, etc. to dry the secretions that are likely part of the cause. Stay well hydrated and consider the use of a humidifier. *Please follow up with your primary care provider in 2-3 days, call for an appointment. Let them know you were seen in the Emergency Department and that we ask that you be seen in follow up. We will electronically transmit a record of today's note if your PCP is in our system *If you do not have a primary care provider please contact the [facility] Resource line at [phone]. They will ask some questions about your medical history and help get you set up with a doctor in the community. *Return to Emergency Department if you should have any new, worsening or concerning symptoms, such as [fever greater than 101 F, shaking chills, trouble breathing, persistent vomiting or other bothersome symptoms] Prescriptions: New methylprednisolone [Medrol (Baljeet)] 4 mg tablets,dose pack See Rx Instructions .ROUTE .COMPLEX Qty: 21 0RF Rx Instructions: orally per package directions No Action buprenorphine-naloxone [Suboxone] 4 MG/1 MG film 4 film sublingual DAILY Qty: 0 Rx Instructions: 16mg metoclopramide HCl 10 MG tablet 10 mg PO TIDAC Qty: 14 0RF hydroxyzine HCl 50 mg tablet 50 mg PO BEDTIME Qty: 10 0RF ibuprofen 800 mg tablet 800 mg PO Q8H PRN (Reason: pain) Qty: 20 0RF cyclobenzaprine 10 mg tablet 10 mg PO TID PRN (Reason: muscle spasm) Qty: 14 0RF ondansetron 4 mg tablet,disintegrating 4 mg PO TID-QID PRN (Reason: nausea and vomiting) Qty: 10 0RF Visit Report Forms: Patient Portal/API
[2022-03-01] MEDS: LORATADINE 10 MG TABLET PO (02:31)
[2022-03-01 02:33] VITALS: BP 134/86
== END 2022-03-01 02:34 | disposition home or self-care (01) ==
PROVIDERS: Emergency Provider Emergency Medicine
DX: R22.1 Localized swelling, mass and lump, neck (principal)
CPT/HCPCS: 87880; 96372; 99283; J1100

== ENCOUNTER 2023-06-20 02:41 | Emergency (ER) | payer OTHER, MEDICAID, SELFPAY ==
[2023-06-20 02:43] VITALS: BP 151/91; PULSE 77; RESP 16; TEMP 36.9; O2SAT 100; BMI 28.8
--- NOTE | 2023-06-20 02:47 | ED.GENADULT ---
HPI - General Adult General Chief complaint: Dizziness Stated complaint: nausea, dizziness Time Seen by Provider: 06/20/23 02:44 Source: patient, RN notes reviewed and old records reviewed Mode of arrival: Ambulatory Limitations: no limitations History of Present Illness HPI narrative: 43-year-old male who was on Suboxone till approximately 8 days ago. Patient states he was receiving it from a facility until about 6 months ago and then started buying off the streets as it was difficult to make it to his weekly appointment. He states he weaned down intentionally to 2 mg, and then stopped 8 days ago. He is states he is continued to feel dizzy, nauseated and generally unwell and anxious. Denies fevers or chills. Denies any chest pain or shortness of breath. States mostly nausea he states no vomiting. States he had a little bit of diarrhea for a couple days but that improved. He denies abdominal back or flank pain. Denies any syncope. Denies any urinary symptoms. Patient has felt anxious. He states felt like his vision has been blurred and he has had some trouble seeing his phone but states he also uses readers for vision intermittently. Patient states no other daily medications. Denies any prior surgeries. Does use tobacco, vapes. Occasional alcohol. Denies any other recreational drugs. States he was initially on Suboxone for 2 years, weaned off for 6 months and then restarted and was on Suboxone for 6 years until recently. Patient does not have a primary care physician. Related Data Home Medications Medication Instructions Recorded Confirmed buprenorphine 4 mg-naloxone 1 mg 4 film sublingual DAILY ##0 02/19/17 05/24/20 sublingual film (Suboxone) Previous Rx's Medication Instructions Recorded metoclopramide HCl 10 mg tablet 10 mg PO TIDAC #14 tabs 02/19/17 hydroxyzine HCl 50 mg tablet 50 mg PO BEDTIME #10 tabs 09/16/20 ibuprofen 800 mg tablet 800 mg PO Q8H PRN pain #20 tabs 09/16/20 cyclobenzaprine 10 mg tablet 10 mg PO TID PRN muscle spasm #14 06/22/21 tabs ondansetron 4 mg disintegrating 4 mg PO TID-QID PRN nausea and 06/22/21 tablet vomiting #10 tabs methylprednisolone 4 mg tablets in See Rx Instructions PO .COMPLEX 11/07/22 a dose pack (Medrol (Baljeet)) #21 ea ondansetron 4 mg disintegrating 4 mg PO Q6H PRN nausea and 06/20/23 tablet vomiting #10 tabs Allergies Allergy/AdvReac Type Severity Reaction Status Date / Time Penicillins [PENICILLINS] Allergy Severe Anaphylaxis Verified 03/01/22 01:42 Review of Systems Review of Systems ROS Unobtainable: All systems reviewed & are unremarkable except as noted in HPI and below Patient History Medical History JRA (juvenile rheumatoid arthritis) History of heroin abuse Panic attacks Migraine headache Degenerative disc disease Spinal stenosis Surgical History History of hand surgery Social History Smoking Status: Current some day smoker Smoking Status: Current some day smoker tobacco type: vaping alcohol intake frequency: a few times a week Substance Use Type: does not use Exam Narrative Exam Narrative: GEN: well nourished, well appearing male, alert and oriented x 3, patient appears to be in mild distress. HEENT: Atraumatic, pupils are equal round reactive to light, extraocular movements are intact, nares are clear, TMs are clear with no fluid, there is no conjunctival pallor. Throat is clear without any exudates, erythema, tonsillar enlargement or uvular deviation, no facial droop HEART: Regular rate and rhythm without murmur, clicks, rubs. LUNGS:Lungs clear to auscultation, no wheezes, rales, crackles, chest moves symmetrically ABD:bowel sounds normal, soft, non-tender, no guarding, rebound, rigidity, no masses noted, no hepatosplenomegaly :No CVA tenderness MSCL: Non-tender, no muscle atrophy, muscles strength 5/5 upper and lower extremities, full range of motion, normal gait NEURO:CN 2-12 intact, sensation normal, reflexes 2/4 upper and lower extremities. finger nose finger test normal, heel gore test normal Initial Vital Signs Initial Vital Signs: Vital Signs Temperature 98.4 F 06/20/23 02:43 Pulse Rate 77 06/20/23 02:43 Respiratory Rate 16 06/20/23 02:43 Blood Pressure 151/91 H 06/20/23 02:43 Pulse Oximetry 100 06/20/23 02:43 Oxygen Delivery Method Room Air 06/20/23 02:43 Course Orders Ordered: ED Orders 06/20/23 03:40 CBC Auto Diff [Complete Blood Count AUTO DIFF] Stat CMP [Comprehensive Metabolic Panel] Stat Lipase Stat Discontinued Medications Ondansetron HCl (Ondansetron 4 Mg Odt) 4 mg SL NOW ONE Stop: 06/20/23 03:06 Last Admin: 06/20/23 03:12 Dose: 4 mg Documented By: MARA Ondansetron HCl (Ondansetron 4 Mg Odt Prepack) 1 bottle MISC DIRECTED ONE Stop: 06/20/23 04:49 Last Admin: 06/20/23 05:03 Dose: 1 bottle Documented By: MARA Vital Signs Vital signs: Vital Signs - 8 hr 06/20/23 02:43 Temperature 98.4 F Pulse Rate 77 Respiratory Rate 16 Blood Pressure 151/91 H Pulse Oximetry 100 Oxygen Delivery Method Room Air Medical Decision Making Lab Data 06/20/23 03:40 06/20/23 03:40 Labs: Lab Results 06/20/23 Range/Units 03:40 WBC 4.5 (4.5-11.0) X10^3/uL RBC 4.63 (4.5-5.9) X10^6/uL Hgb 15.2 (13.5-17.5) g/dL Hct 44.0 (41-53) % MCV 95.0 (80-100) fL MCH 32.9 (26-34) PG MCHC 34.6 (30-36) % RDW 13.1 (11.6-14.8) % Plt Count 139 L (150-400) X10^3/uL Neut % (Auto) 73.3 (50-75) % Lymph % (Auto) 20.2 L (25-40) % [place] % (Auto) 5.4 (3-14) % Eos % (Auto) 0.9 L (2-4) % Baso % (Auto) 0.2 (0-2) % Neut # (Auto) 3300 (9842-0967) /uL Lymph # (Auto) 900 L (7502-5232) /uL [place] # (Auto) 200 (0-900) /uL Eos # (Auto) 0 (0-450) /uL Baso # (Auto) 0 (0-100) /uL Sodium 138 (137-145) mmol/L Potassium 4.5 (3.4-5.1) mmol/L Chloride 105 (98-107) mmol/L Carbon Dioxide 26 (22-32) mmol/L BUN 15 (9-20) mg/dL Creatinine 0.95 (0.66-1.25) mg/dL Estimated GFR > 60 (>60) mL/min BUN/Creatinine Ratio 15.8 (6-22) Glucose 103 H (70-100) mg/dL Calcium 8.8 (8.4-10.2) mg/dL Total Bilirubin 0.7 (0.2-1.3) mg/dL AST 29 (17-59) IU/L ALT 34 (<50) IU/L Alkaline Phosphatase 74 (38-126) U/L Total Protein 6.5 (6.3-8.2) g/dL Albumin 3.9 (3.5-5.0) g/dL Globulin 2.6 (1.7-4.1) g/dL Albumin/Globulin Ratio 1.5 (1.0-2.8) Lipase 253 (23-300) U/L MDM Narrative Medical decision making narrative: 43-year-old male who describes symptoms likely consistent with withdrawal from Suboxone. Did try to self wean down to 2 mg stopped approximately 8 days ago. Symptoms have been fairly persistent not worsening but only minimally improved. Patient describes some diarrhea but no persistent vomiting. Patient's neurologic exam is normal. Normal gait. Discussed with patient we will check labs for any electrolyte abnormalities or other changes. Zofran ODT given in department. CBC shows slightly low platelets of 139 actually improved from priors through 2018. CMP and lipase are negative. Discussed findings with patient he feels better after the Zofran. We will give a short term script. Discussed if symptoms are persisting more than several more days or if he is having much worsening symptoms or changing symptoms should be re-evaluated. Discharge Plan Departure Patient Disposition: Home Clinical Impression: Narcotic withdrawal, Thrombocytopenia Activity Restrictions/Additional Instructions: Follow up as needed. I hope you start to feel better quickly. You may take Zofran 1 tablet sublingually every 6 hours as needed for nausea. Prescription sent to [facility] in [place]. Suboxone withdrawal typically follows this general timeline: 1?3 days after the last dose: Physical and emotional withdrawal symptoms set in. 3?5 days after the last dose: Withdrawal symptoms generally peak. 1?2 weeks after stopping use: Physical withdrawal symptoms mostly subside and emotional symptoms may begin to ease some. Please return for new or worsening symptoms, sudden vision changes, facial droop, difficulty with movement, persistent vomiting, passing out or other new or concerning changes. Prescriptions: New ondansetron 4 mg tablet,disintegrating 4 mg PO Q6H PRN (Reason: nausea and vomiting) Qty: 10 0RF No Action buprenorphine-naloxone [Suboxone] 4 MG/1 MG film 4 film sublingual DAILY Qty: 0 Rx Instructions: 16mg metoclopramide HCl 10 MG tablet 10 mg PO TIDAC Qty: 14 0RF hydroxyzine HCl 50 mg tablet 50 mg PO BEDTIME Qty: 10 0RF ibuprofen 800 mg tablet 800 mg PO Q8H PRN (Reason: pain) Qty: 20 0RF cyclobenzaprine 10 mg tablet 10 mg PO TID PRN (Reason: muscle spasm) Qty: 14 0RF ondansetron 4 mg tablet,disintegrating 4 mg PO TID-QID PRN (Reason: nausea and vomiting) Qty: 10 0RF methylprednisolone [Medrol (Baljeet)] 4 mg tablets,dose pack See Rx Instructions .ROUTE .COMPLEX Qty: 21 0RF Rx Instructions: orally per package directions Stand Alone Forms: Patient Portal/API
[2023-06-20] MEDS: ONDANSETRON 4 MG ODT SL (03:12)
[2023-06-20 03:57] LABS: Add Manual Diff / Slide Review NO; Basophils Absolute Auto 0 /uL (0-100); Basophils Percent Auto 0.2 % (0-2); Eosinophils Absolute Auto 0 /uL (0-450); Eosinophils Percent Auto 0.9 % (2-4); Hemoglobin 15.2 g/dL (13.5-17.5); Lymphocytes Absolute Auto 900 /uL (1100-4500); Lymphocytes Percent Auto 20.2 % (25-40); Mean Corpuscular HGB Conc 34.6 % (30-36); Mean Corpuscular Hemoglobin 32.9 PG (26-34); Monocytes Absolute Auto 200 /uL (0-900); Monocytes Percent Auto 5.4 % (3-14); Neutrophils Absolute Auto 3300 /uL (1500-7000); Neutrophils Percent Auto 73.3 % (50-75); Platelet Count 139 X10^3/uL (150-400); Red Blood Cell Count 4.63 X10^6/uL (4.5-5.9); Red Cell Distribution Width 13.1 % (11.6-14.8); White Blood Cell Count 4.5 X10^3/uL (4.5-11.0)
[2023-06-20 04:16] LABS: Alanine Aminotransferase 34 IU/L (<50); Albumin 3.9 g/dL (3.5-5.0); Albumin Globulin Ratio 1.5 (1.0-2.8); Alkaline Phosphatase 74 U/L (38-126); Aspartate Aminotransferase 29 IU/L (17-59); BUN Creatinine Ratio 15.8 (6-22); Bilirubin Total 0.7 mg/dL (0.2-1.3); Blood Urea Nitrogen 15 mg/dL (9-20); Calcium 8.8 mg/dL (8.4-10.2); Carbon Dioxide 26 mmol/L (22-32); Chloride 105 mmol/L (98-107); Estimated Glomerular Filt Rate > 60 mL/min (>60); Globulin 2.6 g/dL (1.7-4.1); Glucose 103 mg/dL (70-100); HEMOLYSIS 21 (0-50); Lipase 253 U/L (23-300); Potassium 4.5 mmol/L (3.4-5.1); Sodium 138 mmol/L (137-145); Total Protein 6.5 g/dL (6.3-8.2)
[2023-06-20 04:55] VITALS: BP 144/76; PULSE 78; RESP 18; TEMP 36.6; O2SAT 99
[2023-06-20] MEDS: ONDANSETRON 4 MG ODT PREPACK 1 BOTTLE MISC (05:03)
== END 2023-06-20 04:55 | disposition home or self-care (01) ==
PROVIDERS: Emergency Provider Emergency Medicine
DX: F11.23 Opioid dependence with withdrawal (principal); D69.6 Thrombocytopenia, unspecified
CPT/HCPCS: 36415; 80053; 83690; 85025; 99283

== ENCOUNTER 2023-07-25 14:52 | Emergency (ER) | payer OTHER, MEDICAID, SELFPAY ==
[2023-07-25 14:57] VITALS: BP 201/88; PULSE 85; RESP 20; TEMP 36.3; O2SAT 100; BMI 29.8
--- NOTE | 2023-07-25 15:28 | ED.EXTPRO ---
HPI - Extremity Problem <Ezequiel Harrison PA-C - Last Filed: 07/25/23 18:31> General Chief complaint: Extremity Problem,Nontraumatic Stated complaint: feet numb T-12 Time Seen by Provider: 07/25/23 15:15 Source: patient Mode of arrival: Ambulatory History of Present Illness HPI Narrative: 43-year-old male with past medical history opioid abuse presents the with 11 days of bilateral lower leg and foot numbness. Patient also endorses some numbness to the palms of his hands. Patient states that he recently went off of Suboxone, had several withdrawal symptoms and has generally been feeling unwell. Patient continues to have diarrhea but no other withdrawal symptoms. Patient states that he has been physically active, has been running uphill or on stairs, has lost a lot of weight over the past year from doing the exercise. Patient states that he is now unable to run since it feels uncomfortable with his numb extremities. Patient does complain of some mid to lower back pain that he has had for over a month now. Patient denies any urinary hesitancy, urinary incontinence, bowel incontinence. Patient does not currently have a PCP. Patient does not know if he is diabetic. Patient denies chest pain, shortness of breath, weakness of extremities. Related Data Home Medications Medication Instructions Recorded Confirmed buprenorphine 4 mg-naloxone 1 mg 4 film sublingual DAILY ##0 02/19/17 05/24/20 sublingual film (Suboxone) Previous Rx's Medication Instructions Recorded metoclopramide HCl 10 mg tablet 10 mg PO TIDAC #14 tabs 02/19/17 hydroxyzine HCl 50 mg tablet 50 mg PO BEDTIME #10 tabs 09/16/20 ibuprofen 800 mg tablet 800 mg PO Q8H PRN pain #20 tabs 09/16/20 cyclobenzaprine 10 mg tablet 10 mg PO TID PRN muscle spasm #14 06/22/21 tabs ondansetron 4 mg disintegrating 4 mg PO TID-QID PRN nausea and 06/22/21 tablet vomiting #10 tabs methylprednisolone 4 mg tablets in See Rx Instructions PO .COMPLEX 03/01/22 a dose pack (Medrol (Baljeet)) #21 ea ondansetron 4 mg disintegrating 4 mg PO Q6H PRN nausea and 06/20/23 tablet vomiting #10 tabs Allergies Allergy/AdvReac Type Severity Reaction Status Date / Time Penicillins [PENICILLINS] Allergy Severe Anaphylaxis Verified 07/25/23 15:04 Review of Systems <Ezequiel Harrison PA-C - Last Filed: 07/25/23 18:31> Review of Systems ROS Unobtainable: All systems reviewed & are unremarkable except as noted in HPI and below Patient History <Ezequiel Harrison PA-C - Last Filed: 07/25/23 18:31> Medical History JRA (juvenile rheumatoid arthritis) History of heroin abuse Panic attacks Migraine headache Degenerative disc disease Spinal stenosis Surgical History History of hand surgery Social History Smoking Status: Current some day smoker Smoking Status: Current some day smoker tobacco type: vaping alcohol intake frequency: a few times a week Substance Use Type: does not use Exam <Ezequiel Harrison PA-C - Last Filed: 07/25/23 18:31> Narrative Exam Narrative: Const General:?cooperative, healthy appearing and comfortable [facility] Head:?normal to inspection Ears:?hearing grossly normal bilaterally Nose:?external nose normal Face and sinus:?normal facial exam and sinuses nontender Mouth:?oral mucosae normal Throat:?posterior oropharynx normal Eyes General:?appearance normal, both eyes and all related structures Neck Neck:?normal visual inspection and no lymphadenopathy noted Resp Effort & Inspection:?normal respiratory effort Auscultation:?clear to auscultation bilaterally Cardio Rate:?regular rate Rhythm:?regular rhythm Musculoskeletal Upper and lower extremities are well perfused with cap refill less than 2 seconds. Skin is warm to touch. Skin is not erythematous. Skin is intact. Pulses intact. Patient is able to walk normally. Neuro General:?patient alert, patient awake and patient oriented x3; gait is normal; CN 1 through 12 intact bilaterally. Initial Vital Signs Initial Vital Signs: Vital Signs Temperature 97.3 F L 07/25/23 14:57 Pulse Rate 85 07/25/23 14:57 Respiratory Rate 20 07/25/23 14:57 Blood Pressure 201/88 H 07/25/23 14:57 Pulse Oximetry 100 07/25/23 14:57 Oxygen Delivery Method Room Air 07/25/23 14:57 <Angeles Peters DO - Last Filed: 07/26/23 08:49> Initial Vital Signs Initial Vital Signs: Vital Signs Temperature 97.3 F L 07/25/23 14:57 Pulse Rate 85 07/25/23 14:57 Respiratory Rate 20 07/25/23 14:57 Blood Pressure 201/88 H 07/25/23 14:57 Pulse Oximetry 100 07/25/23 14:57 Oxygen Delivery Method Room Air 07/25/23 14:57 Course <Ezequiel Harrison PA-C - Last Filed: 07/25/23 18:31> Vital Signs Vital signs: Vital Signs - 8 hr 07/25/23 14:57 07/25/23 16:27 Temperature 97.3 F L Pulse Rate 85 72 Respiratory Rate 20 16 Blood Pressure 201/88 H 131/78 Pulse Oximetry 100 98 Oxygen Delivery Method Room Air Room Air <Angeles Peters DO - Last Filed: 07/26/23 08:49> Vital Signs Vital signs: Vital Signs - 8 hr 07/25/23 14:57 07/25/23 16:27 Temperature 97.3 F L Pulse Rate 85 72 Respiratory Rate 20 16 Blood Pressure 201/88 H 131/78 Pulse Oximetry 100 98 Oxygen Delivery Method Room Air Room Air MDM - Extremity (Nontraumatic) <Ezequiel Harrison PA-C - Last Filed: 07/25/23 18:31> MDM Narrative Medical decision making narrative: 43-year-old male with past medical history opioid abuse presents the with 11 days of bilateral lower leg and foot numbness. Concern for peripheral neuropathy versus sciatica versus other nerve injury versus other. Patient's presenting blood pressure to the ED was 201/88. However, his blood pressure came down spontaneously to 131/78 after some time. It is unclear the etiology of the numbness, however no emergent findings. Recommend that patient establish with a new PCP for re-evaluation, treatment, referrals. Patient was given information on find a new PCP in the local area. ED return precautions were discussed with patient. Patient verbalized understanding. Medical records reviewed: Yes Discharge Plan Departure Patient Disposition: Home Clinical Impression: Numbness Instructions: DI for Numbness/Tingling Activity Restrictions/Additional Instructions: You were evaluated in the ED today for numbness in the feet and lower legs. It is unclear why you are experiencing these symptoms, however could be due to peripheral neuropathy which is most commonly associated with diabetes. You can also have numbness resulting from back pain. You will need to establish care with a primary care doctor who can further evaluate your symptoms and treat/refer you accordingly. Return to the ED if you have worsening symptoms. Prescriptions: No Action buprenorphine-naloxone [Suboxone] 4 MG/1 MG film 4 film sublingual DAILY Qty: 0 Rx Instructions: 16mg metoclopramide HCl 10 MG tablet 10 mg PO TIDAC Qty: 14 0RF hydroxyzine HCl 50 mg tablet 50 mg PO BEDTIME Qty: 10 0RF ibuprofen 800 mg tablet 800 mg PO Q8H PRN (Reason: pain) Qty: 20 0RF cyclobenzaprine 10 mg tablet 10 mg PO TID PRN (Reason: muscle spasm) Qty: 14 0RF ondansetron 4 mg tablet,disintegrating 4 mg PO TID-QID PRN (Reason: nausea and vomiting) Qty: 10 0RF ondansetron 4 mg tablet,disintegrating 4 mg PO Q6H PRN (Reason: nausea and vomiting) Qty: 10 0RF methylprednisolone [Medrol (Baljeet)] 4 mg tablets,dose pack See Rx Instructions .ROUTE .COMPLEX Qty: 21 0RF Rx Instructions: orally per package directions Stand Alone Forms: Patient Portal/API ED Sign-out <Angeles Peters DO - Last Filed: 07/26/23 08:49> Cosign ED Attending Roberto Carlos Attestation: I was available for consultation.
[2023-07-25 16:27] VITALS: BP 131/78; PULSE 72; RESP 16; O2SAT 98
== END 2023-07-25 16:51 | disposition home or self-care (01) ==
PROVIDERS: Emergency Provider Student in an Organized Health Care Education/Training Program
DX: R20.0 Anesthesia of skin (principal)
CPT/HCPCS: 99281

== ENCOUNTER → 2023-11-17 09:19 | Outpatient (CLI) | payer OTHER, MEDICAID, SELFPAY ==
--- NOTE | 2023-11-17 09:21 | DI.US.S_ITS ---
PROCEDURE: US PERIPH VENOUS UP EXTREM TUAN INDICATIONS: PAIN TECHNIQUE: Real-time imaging, as well as color and pulse Doppler interrogation, was performed of both upper extremity deep veins from the inferior neck to the antecubital fossa. COMPARISON: None. FINDINGS: Right: The internal jugular veins, visualized portions of the subclavian veins, axillary veins, and brachial veins are free of intraluminal thrombus. Where physically possible, the veins are normally compressible. Color and pulse Doppler demonstrate normal intraluminal flow, with expected phasicity and pulsatility. Additional scanning of the cephalic and basilic veins of the superficial system demonstrates normal compressibility, without thrombus. Left: The internal jugular veins, visualized portions of the subclavian veins, axillary veins, and brachial veins are free of intraluminal thrombus. Where physically possible, the veins are normally compressible. Color and pulse Doppler demonstrate normal intraluminal flow, with expected phasicity and pulsatility. Additional scanning of the cephalic and basilic veins of the superficial system demonstrates normal compressibility, without thrombus. IMPRESSION: No findings of deep venous thrombosis can be seen within either upper extremity. Dictated by: Parag Wilhelm M.D. on 11/17/2023 at 13:48 Approved by: Parag Wilhelm M.D. on 11/17/2023 at 13:48
== END ==
PROVIDERS: Referring Provider Physician Assistant; Visit Provider Physician Assistant
DX: D68.51 Activated protein C resistance (principal); R22.40 Localized swelling, mass and lump, unspecified lower limb
CPT/HCPCS: 93970

== ENCOUNTER 2024-03-04 07:40 | Emergency (ER) | payer OTHER, MEDICAID, SELFPAY ==
[2024-03-04 07:47] VITALS: BP 182/103; PULSE 68; RESP 18; TEMP 36.6; O2SAT 99; BMI 30.4
--- NOTE | 2024-03-04 08:04 | ED_ITS ---
HPI - Extremity Problem General Chief complaint: Extremity Problem,Nontraumatic Stated complaint: L/R leg pain Time Seen by Provider: 03/04/24 07:49 Source: patient Mode of arrival: Ambulatory History of Present Illness HPI Narrative: Patient is a 43-year-old history of severe dyslexia bilateral neuropathy prior Suboxone, presenting today with ongoing bilateral numbness. He is currently moving he has a lot of stress in his life. He stepped on a piece glass yesterday he pulled the glass out of his foot. However quite stressed and has numbness in both legs. He reports that he has had significant reaction to gabapentin. Related Data Home Medications Medication Instructions Recorded Confirmed buprenorphine 4 mg-naloxone 1 mg 4 film sublingual DAILY ##0 02/19/17 05/24/20 sublingual film (Suboxone) Previous Rx's Medication Instructions Recorded metoclopramide HCl 10 mg tablet 10 mg PO TIDAC #14 tabs 02/19/17 hydroxyzine HCl 50 mg tablet 50 mg PO BEDTIME #10 tabs 09/16/20 ibuprofen 800 mg tablet 800 mg PO Q8H PRN pain #20 tabs 09/16/20 cyclobenzaprine 10 mg tablet 10 mg PO TID PRN muscle spasm #14 06/22/21 tabs ondansetron 4 mg disintegrating 4 mg PO TID-QID PRN nausea and 06/22/21 tablet vomiting #10 tabs methylprednisolone 4 mg tablets in See Rx Instructions PO .COMPLEX 03/01/22 a dose pack (Medrol (Baljeet)) #21 ea ondansetron 4 mg disintegrating 4 mg PO Q6H PRN nausea and 06/20/23 tablet vomiting #10 tabs Allergies Allergy/AdvReac Type Severity Reaction Status Date / Time Penicillins [PENICILLINS] Allergy Severe Anaphylaxis Verified 03/04/24 07:52 Patient History Medical History JRA (juvenile rheumatoid arthritis) History of heroin abuse Panic attacks Migraine headache Degenerative disc disease Spinal stenosis Surgical History History of hand surgery Social History Smoking Status: Current some day smoker Smoking Status: Current some day smoker tobacco type: vaping alcohol intake frequency: a few times a month Substance Use Type: does not use Exam Initial Vital Signs Initial Vital Signs: Vital Signs Temperature 97.8 F 03/04/24 07:47 Pulse Rate 68 03/04/24 07:47 Respiratory Rate 18 03/04/24 07:47 Blood Pressure 182/103 H 03/04/24 07:47 Pulse Oximetry 99 03/04/24 07:47 Oxygen Delivery Method Room Air 03/04/24 07:47 GENERAL: Well-appearing, well-nourished and in no acute distress. CARDIOVASCULAR: peripheral pulses in tact, cap refill <2 sec RESPIRATORY: No respiratory distress, speaks in full sentences without difficulty EXTREMITIES: Normal range of motion, no clubbing or edema. Neurovascularly intact NEUROLOGICAL: Cranial nerves II through XII grossly intact. Normal gait and speech. SKIN: Left foot close laceration noted on plantar side. There is no zeeshan rounding erythema drainage or significant pain Course Orders Ordered: Discontinued Medications Ketorolac Tromethamine (Ketorolac 30 Mg/Ml Vial) 30 mg IM NOW ONE Stop: 03/04/24 08:05 Last Admin: 03/04/24 08:12 Dose: 30 mg Documented By: RB Vital Signs Vital signs: Vital Signs - 8 hr 03/04/24 07:47 Temperature 97.8 F Pulse Rate 68 Respiratory Rate 18 Blood Pressure 182/103 H Pulse Oximetry 99 Oxygen Delivery Method Room Air MDM - Extremity (Nontraumatic) MDM Narrative Medical decision making narrative: Patient 43-year-old male with prior history of substance abuse bilateral neuropathy significant stress in his life presents today with bilateral lobo ropathy. No injury or fall no need for imaging. He did step on glass yesterday but he pulled it out there is no evidence infection. Discussed with patient he needs to look at his feet every day to make sure that there is no infection. This time he was given a shot Toradol. Recommend following with provider in regards to ongoing neuropathy pain. Previous records have been reviewed he was seen in May 2023 for dizziness and seen again in July for neuropathy. Discharge Plan Departure Patient Disposition: Home Clinical Impression: Neuropathy Instructions: DI for Peripheral Neuropathy Activity Restrictions/Additional Instructions: *You have been diagnosed with neuropathy *What to do: At this time please follow-up with your provider in regards to ongoing neuropathy pain. Pregabalin might be an option for you. Please make sure you check the bottom of your feet daily to make sure that there is no ongoing infection *Continue to take medications as directed Motrin 600 mg every 6 hours for [id number] Tylenol 1000 mg every 6 hours for [id number] pain *Follow up with your primary care provider in 2-3 days or call [phone] *Return to ER if you should have increasing redness swelling fever or any new, worsening or concerning symptoms Prescriptions: No Action buprenorphine-naloxone [Suboxone] 4 MG/1 MG film 4 film sublingual DAILY Qty: 0 Rx Instructions: 16mg metoclopramide HCl 10 MG tablet 10 mg PO TIDAC Qty: 14 0RF hydroxyzine HCl 50 mg tablet 50 mg PO BEDTIME Qty: 10 0RF ibuprofen 800 mg tablet 800 mg PO Q8H PRN (Reason: pain) Qty: 20 0RF cyclobenzaprine 10 mg tablet 10 mg PO TID PRN (Reason: muscle spasm) Qty: 14 0RF ondansetron 4 mg tablet,disintegrating 4 mg PO TID-QID PRN (Reason: nausea and vomiting) Qty: 10 0RF ondansetron 4 mg tablet,disintegrating 4 mg PO Q6H PRN (Reason: nausea and vomiting) Qty: 10 0RF methylprednisolone [Medrol (Baljeet)] 4 mg tablets,dose pack See Rx Instructions .ROUTE .COMPLEX Qty: 21 0RF Rx Instructions: orally per package directions Referrals: Ryan Smith MD [Primary Care Provider] - Stand Alone Forms: Patient Portal/API/Survey
[2024-03-04] MEDS: KETOROLAC 30 MG/ML VIAL IM (08:12)
== END 2024-03-04 08:20 | disposition home or self-care (01) ==
PROVIDERS: Emergency Provider Emergency Medicine; Family Provider Family Medicine; PCP Family Medicine
DX: G62.9 Polyneuropathy, unspecified (principal)
CPT/HCPCS: 96372; 99283; J1885

== ENCOUNTER 2024-04-09 11:21 | Emergency (ER) | payer OTHER, SELFPAY ==
[2024-04-09 11:30] VITALS: BP 143/80; PULSE 78; RESP 17; TEMP 36.7; O2SAT 98; BMI 29.2
--- NOTE | 2024-04-09 14:42 | PC.NURSE ---
Registration visualized patient leaving at 1400. Patient has not returned since. Will VDC.
== END 2024-04-09 14:00 | disposition left against medical advice (07) ==
PROVIDERS: Emergency Provider Emergency Medicine; Family Provider Family Medicine; PCP Family Medicine
DX: M79.605 Pain in left leg (principal)

== ENCOUNTER 2024-04-09 15:08 | Emergency (ER) | payer OTHER, SELFPAY ==
[2024-04-09 15:24] VITALS: BP 120/69; PULSE 65; RESP 16; TEMP 36.7; O2SAT 100; BMI 29.2
--- NOTE | 2024-04-09 17:01 | ED.LOWEXIN ---
HPI - Extremity Injury (Lower) <Suyapa Timmons PA-C - Last Filed: 04/09/24 19:33> General Chief Complaint: Extremity Injury, Lower Stated Complaint: leg px Time Seen by Provider: 04/09/24 16:39 Source: patient Mode of arrival: Ambulatory History of Present Illness HPI Narrative: Mr. Sol is a pleasant 43-year-old male with a past medical history of factor 5 Leiden and bilateral LE peripheral neuropathy who presents to the emergency department for left lower leg pain and swelling x3 days. Patient reports that he was stepping out of a [employer] truck when he sustained pain of his left ankle about 3 days ago. Reports that he went to [facility] and had x-rays done which were negative and he was diagnosed with a left ankle sprain. States that since then the pain has since traveled up to his calf and the back of his knee and his calf is swollen. Because of his history of clotting disorder he is concerned about possible DVT. Patient denies chest pain, shortness of breath, fevers, chills, rash or discoloration of the left lower leg. Denies drug use. Admits to occasional alcohol use. Related Data Home Medications Medication Instructions Recorded Confirmed buprenorphine 4 mg-naloxone 1 mg 4 film sublingual DAILY ##0 02/19/17 05/24/20 sublingual film (Suboxone) Previous Rx's Medication Instructions Recorded metoclopramide HCl 10 mg tablet 10 mg PO TIDAC #14 tabs 02/19/17 hydroxyzine HCl 50 mg tablet 50 mg PO BEDTIME #10 tabs 09/16/20 ibuprofen 800 mg tablet 800 mg PO Q8H PRN pain #20 tabs 09/16/20 cyclobenzaprine 10 mg tablet 10 mg PO TID PRN muscle spasm #14 06/22/21 tabs ondansetron 4 mg disintegrating 4 mg PO TID-QID PRN nausea and 06/22/21 tablet vomiting #10 tabs methylprednisolone 4 mg tablets in See Rx Instructions PO .COMPLEX 03/01/22 a dose pack (Medrol (Baljeet)) #21 ea ondansetron 4 mg disintegrating 4 mg PO Q6H PRN nausea and 06/20/23 tablet vomiting #10 tabs Allergies Allergy/AdvReac Type Severity Reaction Status Date / Time Penicillins [PENICILLINS] Allergy Severe Anaphylaxis Verified 04/09/24 15:24 Review of Systems <Suyapa Timmons PA-C - Last Filed: 04/09/24 19:33> Review of Systems ROS Unobtainable: All systems reviewed & are unremarkable except as noted in HPI and below Patient History <Suyapa Timmons PA-C - Last Filed: 04/09/24 19:33> Medical History JRA (juvenile rheumatoid arthritis) History of heroin abuse Panic attacks Migraine headache Degenerative disc disease Spinal stenosis Surgical History History of hand surgery Social History Smoking Status: Current every day smoker Smoking Status: Current every day smoker tobacco type: vaping alcohol intake frequency: a few times a month Exam <Suyapa Timmons PA-C - Last Filed: 04/09/24 19:33> Narrative Exam Narrative: GENERAL: 43 year old patient appears stated age. Well-developed patient, in no acute distress. HEAD: Atraumatic. Normocephalic. EYES: Extraocular motions intact. No scleral icterus. No injection or drainage. ENT: Nose without bleeding, purulent drainage. NECK: Trachea midline. Cervical ROM intact. CARDIOVASCULAR: Regular rate and rhythm. Strong bilateral DP and PT pulses. Brisk capillary refill on lower digits. RESPIRATORY: ?Nonlabored respirations. ?Speaking in clear, full sentences. ? EXTREMITIES: Edema of left ankle. Tenderness to palpation of left calf. No tenderness to palpation of left knee. No erythema or increased warmth. No tenderness to palpation of left foot. NEURO: AOx3. ?Clear speech. ?Moves all 4 extremities appropriately. SKIN: 3 small erythematous circumscribed areas on left great toe. Initial Vital Signs Initial Vital Signs: Vital Signs Temperature 98.0 F 04/09/24 15:24 Pulse Rate 65 04/09/24 15:24 Respiratory Rate 16 04/09/24 15:24 Blood Pressure 120/69 04/09/24 15:24 Pulse Oximetry 100 04/09/24 15:24 Oxygen Delivery Method Room Air 04/09/24 15:24 <Luis Carlos Ram DO - Last Filed: 04/09/24 21:19> Initial Vital Signs Initial Vital Signs: Vital Signs Temperature 98.0 F 04/09/24 15:24 Pulse Rate 65 04/09/24 15:24 Respiratory Rate 16 04/09/24 15:24 Blood Pressure 120/69 04/09/24 15:24 Pulse Oximetry 100 04/09/24 15:24 Oxygen Delivery Method Room Air 04/09/24 15:24 Course <Suyapa Timmons PA-C - Last Filed: 04/09/24 19:33> Orders Ordered: ED Orders 04/09/24 17:11 US periph venous low extrem lt Stat 04/09/24 17:14 XR ankle LT min 3V Stat Discontinued Medications Acetaminophen (Acetaminophen 325 Mg Tablet) 650 mg PO NOW ONE Stop: 04/09/24 17:12 Last Admin: 04/09/24 17:17 Dose: 650 mg Documented By: TANA Ketorolac Tromethamine (Ketorolac 30 Mg/Ml Vial) 30 mg IM NOW ONE Stop: 04/09/24 17:12 Last Admin: 04/09/24 17:17 Dose: 30 mg Documented By: KRYSTA Vital Signs Vital signs: Vital Signs - 8 hr 04/09/24 15:24 04/09/24 19:39 Temperature 98.0 F Pulse Rate 65 98 H Respiratory Rate 16 12 Blood Pressure 120/69 118/72 Pulse Oximetry 100 97 Oxygen Delivery Method Room Air Room Air <Luis Carlos Ram DO - Last Filed: 04/09/24 21:19> Orders Ordered: ED Orders 04/09/24 17:11 periph venous low extrem lt Stat 04/09/24 17:14 XR ankle LT min 3V Stat Discontinued Medications Acetaminophen (Acetaminophen 325 Mg Tablet) 650 mg PO NOW ONE Stop: 04/09/24 17:12 Last Admin: 04/09/24 17:17 Dose: 650 mg Documented By: TANA Ketorolac Tromethamine (Ketorolac 30 Mg/Ml Vial) 30 mg IM NOW ONE Stop: 04/09/24 17:12 Last Admin: 04/09/24 17:17 Dose: 30 mg Documented By: KRYSTA Vital Signs Vital signs: Vital Signs - 8 hr 04/09/24 15:24 04/09/24 19:39 Temperature 98.0 F Pulse Rate 65 98 H Respiratory Rate 16 12 Blood Pressure 120/69 118/72 Pulse Oximetry 100 97 Oxygen Delivery Method Room Air Room Air MDM - Extremity Injury (Lower) <Suyapa Timmons PA-C - Last Filed: 04/09/24 19:33> Medical Records Attestation: I reviewed the patient's medical records. Medical records narrative: Received records from 04/08/24 as [facility]. Patient had x-ray left ankle. Impression: No acute radiographic abnormality. Soft tissue swelling suggestive of ligamentous injury. There is high concern for occult injury consider repeat radiography or cross-sectional imaging. Imaging Data Left Ankle X-Ray: My Impression: On my independent interpretation of left ankle x-ray, no fracture of the distal tibia or fibula. Radiologist's Impression: PROCEDURE: XR ANKLE LT MIN 3V INDICATIONS: LEG PAIN TECHNIQUE: 3 views of the ankle were acquired. COMPARISON: None. FINDINGS: Bones: No fractures or dislocations. Ankle mortise is normally aligned. No suspicious bony lesions. Soft tissues: No tibiotalar joint effusion. Achilles tendon appears normal. IMPRESSION: No acute osseous abnormality. [facility] Narrative Medical decision making narrative: 43-year-old male with a past medical history of factor 5 Leiden and bilateral LE peripheral neuropathy who presents to the emergency department for left lower leg pain and swelling x3 days. Differential diagnosis includes but is not limited to left ankle fracture, left ankle strain, left ankle ligamentous injury, left lower extremity DVT, etc. On exam patient is in no acute distress, nontoxic-appearing, all vital signs within normal limits. Does have edema of the left lower extremity, most prominent over the left ankle. Left calf subjective tenderness with no overt calf swelling. No erythema or signs of cellulitis. Lower extremities are neurovascularly intact. Reviewed x-ray imaging impression from yesterday which reported if there is high concern for occult injury, consider repeat radiography. Therefore we will repeat left ankle x-ray to rule out occult fracture. We will obtain left lower extremity ultrasound to rule out DVT. We will treat with Toradol and Tylenol for pain. Patient's pain improved during ED stay. Ultrasound negative for left lower extremity DVT. X-ray negative for acute bony abnormality. Patient's symptoms are consistent with ankle sprain. Was placed into an Ky wrap and an ankle stirrup for support. He declines the need for crutches. Advised rice therapy and ibuprofen/Tylenol. Recommended follow up with PCP or orthopedics for persistent pain. ER return precautions discussed. Patient verbalized understanding of all information and is stable for discharge home. Discharge Plan Departure Patient Disposition: Home Clinical Impression: Pain of left calf Left ankle sprain Qualifiers: Encounter type: initial encounter Involved ligament of ankle: unspecified ligament Qualified Code(s): S93.402A - Sprain of unspecified ligament of left ankle, initial encounter Instructions: DI for Ankle Sprain Activity Restrictions/Additional Instructions: Today you were evaluated for left lower leg pain and swelling. Your x-ray showed no acute bony fracture of the left ankle. Your ultrasound showed no blood clot in the left leg. Your symptoms are most consistent with a left ankle sprain. We have placed him into a left ankle Ky wrap and brace for support. Please use RICE therapy for your pain in addition to ibuprofen/acetaminophen. Rest the painful area. Ice the area of pain/swelling for at least 15 minutes, 4x a day. Compress the area of swelling using a brace, wrap, or splint if applied. Elevate the painful or swollen extremity by supporting it above the level of the heart with pillows when sitting or laying. Please take Ibuprofen (Motrin/Advil) or Acetaminophen (Tylenol) for pain. These are available over the counter. You may take Ibuprofen 600 mg every 8 hours with food for pain. You may also take Acetaminophen 650 mg every 4-6 hours for pain. Do not exceed 3000 mg of Tylenol a day as this can cause liver damage. Do not drink alcohol with either of these medications. If you have persistent pain, please follow up with the [facility] for further evaluation. You can call at [phone]. Please follow up with your primary care doctor within the next 2-3 days for ER follow-up. (If you do not have a PCP you can call [phone]. ?to schedule an appointment with an [facility] Primary Care Provider) IF YOU DEVELOP ANY NEW OR WORSENING SYMPTOMS, RETURN TO THE ER! Please read the attached instructions, they highlight more specific treatments and interventions for you at home. Thank you for letting me participate in your care, Suyapa Timmons PA-C Prescriptions: No Action buprenorphine-naloxone [Suboxone] 4 MG/1 MG film 4 film sublingual DAILY Qty: 0 Rx Instructions: 16mg metoclopramide HCl 10 MG tablet 10 mg PO TIDAC Qty: 14 0RF hydroxyzine HCl 50 mg tablet 50 mg PO BEDTIME Qty: 10 0RF ibuprofen 800 mg tablet 800 mg PO Q8H PRN (Reason: pain) Qty: 20 0RF cyclobenzaprine 10 mg tablet 10 mg PO TID PRN (Reason: muscle spasm) Qty: 14 0RF ondansetron 4 mg tablet,disintegrating 4 mg PO TID-QID PRN (Reason: nausea and vomiting) Qty: 10 0RF ondansetron 4 mg tablet,disintegrating 4 mg PO Q6H PRN (Reason: nausea and vomiting) Qty: 10 0RF methylprednisolone [Medrol (Baljeet)] 4 mg tablets,dose pack See Rx Instructions .ROUTE .COMPLEX Qty: 21 0RF Rx Instructions: orally per package directions Referrals: Ryan Smith MD [Primary Care Provider] - Stand Alone Forms: Patient Portal/API/Survey ED Sign-out <Luis Carlos Ram DO - Last Filed: 04/09/24 21:19> Cosign ED Attending Cosignature Attestation: Dr Ram Co-Sign Statement: I was available for consultation during this patient's emergency department visit. This chart is signed by myself for administrative purposes only. I did not have direct contact with this patient during this visit. They were seen independently by the APC.
--- NOTE | 2024-04-09 17:11 | DI.US.S_ITS ---
PROCEDURE: US PERIPH VENOUS LOW EXTREM LT INDICATIONS: L calf pain and swelling; concern for dvt TECHNIQUE: Real-time imaging, as well as color and pulse Doppler interrogation, were performed of the lower extremity deep veins from the inguinal ligament to the popliteal fossa, with documentation of the visualized calf veins. COMPARISON: None. FINDINGS: The common femoral, femoral, popliteal, and the visualized calf veins are normally compressible, and free of intraluminal thrombus. Color and pulse Doppler demonstrate normal phasic intraluminal flow. There is normal augmentation response to distal compression maneuver. IMPRESSION: No findings of lower extremity deep venous thrombosis. Dictated by: Lloyd Jacobs M.D. on 04/09/2024 at 19:19 Approved by: Lloyd Jacobs M.D. on 04/09/2024 at 19:19
--- NOTE | 2024-04-09 17:12 | PC.NURSE ---
Patient had xray done at [facility] yesterday, reports ongoing pain and swelling to left ankle. + Pedal pulses, swelling noted. pain radiating up into calf and pain behind left knee.
--- NOTE | 2024-04-09 17:14 | DI.RAD.S_ITS ---
PROCEDURE: XR ANKLE LT MIN 3V INDICATIONS: LEG PAIN TECHNIQUE: 3 views of the ankle were acquired. COMPARISON: None. FINDINGS: Bones: No fractures or dislocations. Ankle mortise is normally aligned. No suspicious bony lesions. Soft tissues: No tibiotalar joint effusion. Achilles tendon appears normal. IMPRESSION: No acute osseous abnormality. Dictated by: Lloyd Jacobs M.D. on 04/09/2024 at 19:16 Approved by: Lloyd Jacobs M.D. on 04/09/2024 at 19:18
[2024-04-09] MEDS: ACETAMINOPHEN 325 MG TABLET 650 MG PO (17:17)
[2024-04-09] MEDS: KETOROLAC 30 MG/ML VIAL IM (17:17)
--- NOTE | 2024-04-09 17:23 | PC.NURSE ---
Patient tearful requesting ativan or his anxiety. States he has taken in the past and been helpful. Provider aware of patients request
--- NOTE | 2024-04-09 18:34 | PC.NURSE ---
patient reports minimal to no improvement in pain.
[2024-04-09 19:39] VITALS: BP 118/72; PULSE 98; RESP 12; O2SAT 97
== END 2024-04-09 19:39 | disposition home or self-care (01) ==
PROVIDERS: Emergency Provider Physician Assistant; Family Provider Family Medicine; PCP Family Medicine
DX: S93.402A Sprain of unspecified ligament of left ankle, initial encounter (principal); Y93.01 Activity, walking, marching and hiking
CPT/HCPCS: 73610; 93971; 96372; 99281; 99284; J1885

== ENCOUNTER 2024-06-01 03:06 | Emergency (ER) | payer OTHER, SELFPAY ==
[2024-06-01 03:25] VITALS: BP 125/85; PULSE 80; RESP 16; TEMP 36.5; O2SAT 97; BMI 30.4
--- NOTE | 2024-06-01 03:30 | ED.PSYCH ---
HPI - Psych <Marcello York DO - Last Filed: 06/01/24 05:50> General Chief Complaint: Psychiatric Symptoms Stated Complaint: self medicating for myotherapy mental Time Seen by Provider: 06/01/24 03:29 History of Present Illness HPI Narrative: 43-year-old male past medical history factor 5 Leiden mutation, bilateral lower extremity peripheral neuropathy, opioid abuse, comes into the ED from home with mother for evaluation of hallucinations and abnormal behavior. At time of evaluation patient actively falling asleep on exam and questioning, he states that he took some medication from his friend that trace anxiety/depression earlier today for his history of neuropathy. States he does not know what this is, also states he has been taking other ?drugs sporadically throughout the past week to help with the symptoms. Mother states patient actively hallucinating patient states he has not been able to sleep very well. But he denies any suicidal homicidal ideations not complaining of any other symptoms at this time. Just complaining of his chronic bilateral lower extremity neuropathy/pain Related Data Home Medications Medication Instructions Recorded Confirmed buprenorphine 4 mg-naloxone 1 mg 4 film sublingual DAILY ##0 02/19/17 05/24/20 sublingual film (Suboxone) Previous Rx's Medication Instructions Recorded metoclopramide HCl 10 mg tablet 10 mg PO TIDAC #14 tabs 02/19/17 hydroxyzine HCl 50 mg tablet 50 mg PO BEDTIME #10 tabs 09/16/20 ibuprofen 800 mg tablet 800 mg PO Q8H PRN pain #20 tabs 09/16/20 cyclobenzaprine 10 mg tablet 10 mg PO TID PRN muscle spasm #14 06/22/21 tabs ondansetron 4 mg disintegrating 4 mg PO TID-QID PRN nausea and 06/22/21 tablet vomiting #10 tabs methylprednisolone 4 mg tablets in See Rx Instructions PO .COMPLEX 03/01/22 a dose pack (Medrol (Baljeet)) #21 ea ondansetron 4 mg disintegrating 4 mg PO Q6H PRN nausea and 06/20/23 tablet vomiting #10 tabs Allergies Allergy/AdvReac Type Severity Reaction Status Date / Time Penicillins [PENICILLINS] Allergy Severe Anaphylaxis Verified 04/09/24 15:24 Review of Systems <DO Melinda Edwards Last Filed: 06/01/24 05:50> Review of Systems Narrative: General: fever, chills, weight loss HEENT: Denies headache, eye drainage, eye irritation, head trauma, sore throat, voice change Cardiovascular: Denies any chest pain, palpitations, shortness of breath, tachycardia Respiratory: Denies any shortness of breath, cough, wheeze, stridor GI/: Denies any abdominal pain, nausea, vomiting, diarrhea, bright red blood per rectum, melanotic stools, urinary frequency, urinary retention, dysuria, hematuria MSK: Denies any joint pain, muscle pains, swelling Skin: Denies any rashes, lesions, discoloration Neuro: Denies any headache, lightheadedness, dizziness, fainting, weakness Psych: Abnormal behavior, hallucinations Denies SI/HI Patient History <Marcello York DO - Last Filed: 06/01/24 05:50> Medical History JRA (juvenile rheumatoid arthritis) History of heroin abuse Panic attacks Migraine headache Degenerative disc disease Spinal stenosis Surgical History History of hand surgery Social History Smoking Status: Current every day smoker Smoking Status: Current every day smoker tobacco type: vaping alcohol intake frequency: a few times a month Exam <Marcello York DO - Last Filed: 06/01/24 05:50> Narrative Exam Narrative: General: Cooperative, comfortable, disheveled HEENT: Normocephalic, atraumatic, PERRLA, normal sclera, eyelids normal, Neck: Active full range of motion, atraumatic Chest: Normal to inspection, negative crepitus, no overlying erythema ecchymosis Respiratory: Normal respiratory effort, not in acute respiratory distress, clear to auscultation bilaterally negative cough, wheeze, tachypnea, rhonchi, rales Cardiology: Regular rate rhythm negative gallop, murmur, rubs GI/: Normal to inspection, soft, nonrigid, no tenderness to palpation, exam deferred MSK: Full range of active range of motion of all 4 extremities, atraumatic Skin: No rashes lesions noted Neuro: Alert awake oriented x3, moves all 4 extremities spontaneously, cranial nerves intact, able to answer all questions appropriately follows commands appropriately Psych: Cooperative, negative suicidal or homicidal ideations, patient actively falling asleep on exam Initial Vital Signs Initial Vital Signs: Vital Signs Temperature 97.7 F 06/01/24 03:25 Pulse Rate 80 06/01/24 03:25 Respiratory Rate 16 06/01/24 03:25 Blood Pressure 125/85 06/01/24 03:25 Pulse Oximetry 97 06/01/24 03:25 Oxygen Delivery Method Room Air 06/01/24 03:25 <Tammie Prado DO - Last Filed: 06/01/24 18:18> Initial Vital Signs Initial Vital Signs: Vital Signs Temperature 97.7 F 06/01/24 03:25 Pulse Rate 80 06/01/24 03:25 Respiratory Rate 16 06/01/24 03:25 Blood Pressure 125/85 06/01/24 03:25 Pulse Oximetry 97 06/01/24 03:25 Oxygen Delivery Method Room Air 06/01/24 03:25 Course <Marcello York, DO - Last Filed: 06/01/24 05:50> Orders Ordered: ED Orders 06/01/24 03:49 Consult to [facility] [place] - Cdl Program Coordinator Stat 06/01/24 03:50 Urine Drug Screen, Rapid Stat EKG-12 Lead Stat 06/01/24 04:08 Acetaminophen Stat Complete Blood Count AUTO DIFF Stat Comprehensive Metabolic Panel Stat Ethanol (ETOH) Stat Salicylate Stat TSH w/ Reflex to FT4 Stat Vital Signs Vital signs: Vital Signs - 8 hr 06/01/24 10:00 Pulse Rate 74 Respiratory Rate 16 Blood Pressure 130/74 Pulse Oximetry 99 Oxygen Delivery Method Room Air <Tammie Prado DO - Last Filed: 06/01/24 18:18> Orders Ordered: ED Orders 06/01/24 03:49 Consult to [facility] [place] - Cdl Program Coordinator Stat 06/01/24 03:50 Urine Drug Screen, Rapid Stat EKG-12 Lead Stat 06/01/24 04:08 Acetaminophen Stat Complete Blood Count AUTO DIFF Stat Comprehensive Metabolic Panel Stat Ethanol (ETOH) Stat Salicylate Stat TSH w/ Reflex to FT4 Stat Vital Signs Vital signs: Vital Signs - 8 hr 06/01/24 10:00 Pulse Rate 74 Respiratory Rate 16 Blood Pressure 130/74 Pulse Oximetry 99 Oxygen Delivery Method Room Air MDM - Psych <Marcello York, DO - Last Filed: 06/01/24 05:50> Differential Diagnosis Differential diagnosis: Likely acute psychosis, drug-induced psychotic disorder and other (Drug abuse, electrolyte abnormality) Lab Data 06/01/24 04:08 06/01/24 04:08 Labs: Lab Results 06/01/24 Range/Units 04:08 WBC 4.9 (4.5-11.0) X10^3/uL RBC 3.79 L (4.5-5.9) X10^6/uL Hgb 12.4 L (13.5-17.5) g/dL Hct 36.5 L (41-53) % MCV 96.3 (80-100) fL MCH 32.8 (26-34) PG MCHC 34.0 (30-36) % RDW 14.4 (11.6-14.8) % Plt Count 177 (150-400) X10^3/uL Neut % (Auto) 57.1 (50-75) % Lymph % (Auto) 32.0 (25-40) % Holmes % (Auto) 8.4 (3-14) % Eos % (Auto) 2.0 (2-4) % Baso % (Auto) 0.5 (0-2) % Neut # (Auto) 2800 (8029-2431) /uL Lymph # (Auto) 1600 (0279-2309) /uL Holmes # (Auto) 400 (0-900) /uL Eos # (Auto) 100 (0-450) /uL Baso # (Auto) 0 (0-100) /uL Sodium 137 (137-145) mmol/L Potassium 4.2 (3.4-5.1) mmol/L Chloride 105 (98-107) mmol/L Carbon Dioxide 27 (22-32) mmol/L BUN 20 (9-20) mg/dL Creatinine 0.79 (0.66-1.25) mg/dL Estimated GFR > 60 (>60) mL/min BUN/Creatinine Ratio 25.3 H (6-22) Glucose 94 (70-100) mg/dL Calcium 8.8 (8.4-10.2) mg/dL Total Bilirubin 0.4 (0.2-1.3) mg/dL AST 79 H (17-59) IU/L ALT 73 H (<50) IU/L Alkaline Phosphatase 84 (38-126) U/L Total Protein 6.8 (6.3-8.2) g/dL Albumin 3.8 (3.5-5.0) g/dL Globulin 3.0 (1.7-4.1) g/dL Albumin/Globulin Ratio 1.3 (1.0-2.8) TSH 1.67 (0.47-4.68) uIU/mL Salicylates < 1.0 (<20) mg/dL Acetaminophen < 10 (10-30) ug/mL Ethyl Alcohol < 10 ( - 10) mg/dL ECG Data Interpretation: EKG interpreted by ED physician sinus 76 beats per minute QTC 441, normal axis, nonspecific ST changes, no STEMI MDM Narrative Medical decision making narrative: 43-year-old male with a history of opiate abuse, chronic neuropathy to his lower extremities, comes into the ED with mother for evaluation of abnormal behavior. Mother states patient has not been sleeping acting abnormally hallucinating. Patient admits to taking ?drugs to help with his chronic neuropathic pain. However he does not know what the name of these are. <Tammie Prado, DO - Last Filed: 06/01/24 18:18> Lab Data Labs: Lab Results 06/01/24 Range/Units 04:08 WBC 4.9 (4.5-11.0) X10^3/uL RBC 3.79 L (4.5-5.9) X10^6/uL Hgb 12.4 L (13.5-17.5) g/dL Hct 36.5 L (41-53) % MCV 96.3 (80-100) fL MCH 32.8 (26-34) PG MCHC 34.0 (30-36) % RDW 14.4 (11.6-14.8) % Plt Count 177 (150-400) X10^3/uL Neut % (Auto) 57.1 (50-75) % Lymph % (Auto) 32.0 (25-40) % Holmes % (Auto) 8.4 (3-14) % Eos % (Auto) 2.0 (2-4) % Baso % (Auto) 0.5 (0-2) % Neut # (Auto) 2800 (1418-1731) /uL Lymph # (Auto) 1600 (7019-5272) /uL Holmes # (Auto) 400 (0-900) /uL Eos # (Auto) 100 (0-450) /uL Baso # (Auto) 0 (0-100) /uL Sodium 137 (137-145) mmol/L Potassium 4.2 (3.4-5.1) mmol/L Chloride 105 (98-107) mmol/L Carbon Dioxide 27 (22-32) mmol/L BUN 20 (9-20) mg/dL Creatinine 0.79 (0.66-1.25) mg/dL Estimated GFR > 60 (>60) mL/min BUN/Creatinine Ratio 25.3 H (6-22) Glucose 94 (70-100) mg/dL Calcium 8.8 (8.4-10.2) mg/dL Total Bilirubin 0.4 (0.2-1.3) mg/dL AST 79 H (17-59) IU/L ALT 73 H (<50) IU/L Alkaline Phosphatase 84 (38-126) U/L Total Protein 6.8 (6.3-8.2) g/dL Albumin 3.8 (3.5-5.0) g/dL Globulin 3.0 (1.7-4.1) g/dL Albumin/Globulin Ratio 1.3 (1.0-2.8) TSH 1.67 (0.47-4.68) uIU/mL Salicylates < 1.0 (<20) mg/dL Acetaminophen < 10 (10-30) ug/mL Ethyl Alcohol < 10 ( - 10) mg/dL MDM Narrative Medical decision making narrative: 43-year-old male with a history of opiate abuse, chronic neuropathy to his lower extremities, comes into the ED with mother for evaluation of abnormal behavior. Mother states patient has not been sleeping acting abnormally hallucinating. Patient admits to taking ?drugs to help with his chronic neuropathic pain. However he does not know what the name of these are. 06/01/2024 Dr. Prado: Patient signed out to myself by Dr. York. Patient seen and evaluated by myself @ 0803 Patient has not given a urine but otherwise labs show hemoglobin of 12.4, AST ALT is slightly elevated at 79 and 73 but with normal bilirubin, tissues is 1.67. Tylenol, salicylate and ETOH are negative. Patient did give a urine, carried his commode all the way from the room to the nursing desk to bring it to us. He has been cooperative. He was alert, ambulatory. States that may has been Ambien that he took last night he states he has been having a lot of trouble sleeping. Patient does not appear to be having any hallucinations at this time. Voluntary. He was open to meeting with the BREWING TECHNICIAN. Urine was not obtained. Patient met with BREWING TECHNICIAN he would like to return home he does not appear to be hallucinating currently, it was appear to be slightly intoxicated but states he will call his mom who did come get him. He appears to be improved from last night and potentially had some polypharmacy. Patient does not have any indication that he would any intentional overdose. Patient is felt appropriate for discharge home. Discharge Plan Departure Patient Disposition: Home Clinical Impression: Hallucination Instructions: DI for Substance Use Disorder Activity Restrictions/Additional Instructions: There are multiple resources available for substance abuse if you are interested you can return at any time for detox. Please return if you are having any new or concerning changes. If you're feeling suicidal or having suicidal thoughts, contact the suicide hotline (this is also a self referral for mental health services): . Prescriptions: No Action buprenorphine-naloxone [Suboxone] 4 MG/1 MG film 4 film sublingual DAILY Qty: 0 Rx Instructions: 16mg metoclopramide HCl 10 MG tablet 10 mg PO TIDAC Qty: 14 0RF hydroxyzine HCl 50 mg tablet 50 mg PO BEDTIME Qty: 10 0RF ibuprofen 800 mg tablet 800 mg PO Q8H PRN (Reason: pain) Qty: 20 0RF cyclobenzaprine 10 mg tablet 10 mg PO TID PRN (Reason: muscle spasm) Qty: 14 0RF ondansetron 4 mg tablet,disintegrating 4 mg PO TID-QID PRN (Reason: nausea and vomiting) Qty: 10 0RF ondansetron 4 mg tablet,disintegrating 4 mg PO Q6H PRN (Reason: nausea and vomiting) Qty: 10 0RF methylprednisolone [Medrol (Baljeet)] 4 mg tablets,dose pack See Rx Instructions .ROUTE .COMPLEX Qty: 21 0RF Rx Instructions: orally per package directions Referrals: Ryan Smith MD [Primary Care Provider] - Stand Alone Forms: Patient Portal/API/Survey
[2024-06-01 04:20] LABS: Add Manual Diff / Slide Review NO; Basophils Absolute Auto 0 /uL (0-100); Basophils Percent Auto 0.5 % (0-2); Eosinophils Absolute Auto 100 /uL (0-450); Hematocrit 36.5 % (41-53); Hemoglobin 12.4 g/dL (13.5-17.5); Lymphocytes Absolute Auto 1600 /uL (1100-4500); Mean Corpuscular Hemoglobin 32.8 PG (26-34); Mean Corpuscular Volume 96.3 fL (80-100); Monocytes Absolute Auto 400 /uL (0-900); Monocytes Percent Auto 8.4 % (3-14); Neutrophils Absolute Auto 2800 /uL (1500-7000); Neutrophils Percent Auto 57.1 % (50-75); Platelet Count 177 X10^3/uL (150-400); Red Blood Cell Count 3.79 X10^6/uL (4.5-5.9); Red Cell Distribution Width 14.4 % (11.6-14.8); White Blood Cell Count 4.9 X10^3/uL (4.5-11.0)
[2024-06-01 04:43] LABS: Alanine Aminotransferase 73 IU/L (<50); Albumin 3.8 g/dL (3.5-5.0); Albumin Globulin Ratio 1.3 (1.0-2.8); Alkaline Phosphatase 84 U/L (38-126); Aspartate Aminotransferase 79 IU/L (17-59); BUN Creatinine Ratio 25.3 (6-22); Bilirubin Total 0.4 mg/dL (0.2-1.3); Blood Urea Nitrogen 20 mg/dL (9-20); Calcium 8.8 mg/dL (8.4-10.2); Carbon Dioxide 27 mmol/L (22-32); Chloride 105 mmol/L (98-107); Estimated Glomerular Filt Rate > 60 mL/min (>60); Ethanol (ETOH) < 10 mg/dL; Glucose 94 mg/dL (70-100); HEMOLYSIS 27 (0-50); Potassium 4.2 mmol/L (3.4-5.1); Sodium 137 mmol/L (137-145); Total Protein 6.8 g/dL (6.3-8.2)
[2024-06-01 04:44] LABS: Acetaminophen < 10 ug/mL (10-30); Salicylate < 1.0 mg/dL (<20)
[2024-06-01 05:36] LABS: TSH w/ Reflex to FT4 1.67 uIU/mL (0.47-4.68)
--- NOTE | 2024-06-01 05:46 | EKG_ITS ---
[place] [id number] [address] [place] [id number] Test Date: 2024-06-01 Pat Name: Luis Carlos Sol Department: [facility] Room: Gender: Male Shield Installer: : 1980 Requested By: Order Number: [id number] Reading MD: Elgin Mccain Measurements Intervals [place] Rate: 76 P: -9 CT: 176 QRS: 1 QRSD: 106 T: 11 QT: 392 QTc: 441 Interpretive Statements Normal sinus rhythm Incomplete right bundle branch block Nonspecific T wave abnormality Electronically Signed On 06-01-2024 9:42:19 PST by Elgin Mccain
[2024-06-01 10:00] VITALS: BP 130/74; PULSE 74; RESP 16; O2SAT 99
--- NOTE | 2024-06-01 12:23 | CM.SWNOTE ---
ED LEAD TECHNICIAN Note Patient is 43 y/o male who presents with mother in the middle of the night due to mother's concern for patient's altered behavior and hallucinations. Patient has been in the ED for over 8 hours over night. Patient has hx of opioid abuse. LEAD TECHNICIAN enters room to meet with patient. Patient as A/O to self, person and day. Patient states he is in the hospital but did not know he was in [place]. Patient presents as disheveled. Patient is slow to respond and presents with slurred speech. Patient has been unable to provide a urine sample. Patient states he lives with his mom in [place], patient does not respond to questions about substance use. Patient states he goes to [facility]. Per Boni, patient is prescribed 30mg of Methadone daily at [facility]. Patient does not want to answer further questions. Patient denies SI and HI, patient denies visual and auditory hallucinations. Patient states he has been having difficulty sleeping in recent days and he took something to help with sleep but he does not recall what. Patient states he does not remember why he was here at the hospital and how he got here. Patient denies interest in any resources and endorses he wants to go home. ED provider has medically cleared patient and patient is safe to d/c home at this time. Patient ambulates independently. LEAD TECHNICIAN asks how patient would get home upon d/c. Patient states that LEAD TECHNICIAN can call his mother. LEAD TECHNICIAN calls patient's mother, she states that she can pick patient up at noon on her lunch break, mother states that patient's phone is at home. Plan: patient to d/c to home upon medical clearance with mother. Margo Alanis, CORPORATE PLANNING MANAGER
== END 2024-06-01 12:14 | disposition home or self-care (01) ==
PROVIDERS: Student in an Organized Health Care Education/Training Program; Emergency Provider Emergency Medicine; Family Provider Family Medicine; PCP Family Medicine
DX: R44.3 Hallucinations, unspecified (principal); G62.9 Polyneuropathy, unspecified; D68.51 Activated protein C resistance
CPT/HCPCS: 36415; 80053; 80320; 80329; 84443; 85025; 93005; 99283; 99284; G0480